=== PATIENT | female | born 1955 | race Caucasian/White ===

== ENCOUNTER 2016-06-05 09:46 | Day surgery (SDC) | payer BC ==
[~2016-06-05 09:46] MED LIST: LACTATED RINGERS 1,000 ML IV SCH
[2016-06-05 10:46] VITALS: TEMP 98
[2016-06-05] MEDS ORDERED: LIDOCAINE 1% 20 ML VIAL (10MG/ML) FOR IV START INTRADERMA ONE (10:55)
[2016-06-05] MEDS ORDERED: LACTATED RINGERS 1,000 ML IV ONE (11:20)
[2016-06-05] MEDS ORDERED: PROPOFOL 10 MG/ML 20 ML VIAL IV ONE (11:21)
[2016-06-05] MEDS ORDERED: LIDOCAINE 1% INJ 10MG/ML (20 ML MDV) ONE (11:21)
--- NOTE | 2016-06-05 11:36 | P.PCN ---
Date of Procedure: 06/05/16 Procedure(s) Performed: BRIEF HISTORY: Patient is a 60-year-old, pleasant, white female, scheduled for an upper endoscopy as a part of evaluation of progressive weight loss of almost 40 pounds in the last 2 years duration associated with epigastric discomfort, early satiety. She underwent emergency ileostomy with small bowel resection while visiting [facility] in February 2016 for acute mesenteric ischemia and since then has been maintained on TPN. In the meantime because of progressively decreased oral intake and early satiety she is scheduled for an upper endoscopy to rule out significant upper GI pathology. PROCEDURE PERFORMED: Esophagogastroduodenoscopy with biopsy. PREOPERATIVE DIAGNOSIS: Epigastric pain, early satiety and progressive weight loss. IV sedation per anesthesia. PROCEDURE: After informed consent was obtained, the patient was brought into the endoscopy unit. IV conscious sedation was administered by Anesthesia under continuous monitoring. Initially the Olympus GIF-140 video endoscope was inserted into the mouth. Esophagus intubated without any difficulty. It was gradually advanced into the stomach and duodenum and carefully examined. The bulb and the second part of the duodenum appeared normal. Biopsies were done from the duodenum to rule out celiac disease. The scope at this time was withdrawn to the stomach, adequately insufflated with air, and upon careful examination, mucosa of the antrum had mild mottling of the mucosa and biopsies were done from this area. The body, cardia and the fundus appeared normal. The scope was then withdrawn into the esophagus. The GE junction was located at 39 cm from the incisors. The esophagus appeared normal. There was once were visualized and the GE junction consistent with LA grade a reflux esophagitis and the patient tolerated the procedure well. IMPRESSION: 1. One superficial erosion at the GE junction consistent with LA grade a reflux esophagitis 2. Mild antral gastritis RECOMMENDATIONS: The findings of this examination were discussed with the patient as well as a family. She was advised to follow with the biopsy results. In the meantime she was advised to try some nutritional supplements and have of course continue with TPN. She is scheduled to see Dr. Gillespie next month for reversal of the ileostomy.
[2016-06-05 11:47] VITALS: RESP 16
[2016-06-05 12:04] VITALS: BP 104/70; PULSE 94
== END 2016-06-05 12:45 | disposition home or self-care (01) ==
LOC: ORWHC2ENDO 09:46
PROVIDERS: ATTEND Internal Medicine Gastroenterology
DX: K21.0 Gastro-esophageal reflux disease with esophagitis (principal); K29.50 Unspecified chronic gastritis without bleeding; Z93.2 Ileostomy status; K55.059 Acute (reversible) ischemia of intestine, part and extent unspecified; F17.200 Nicotine dependence, unspecified, uncomplicated; Z79.82 Long term (current) use of aspirin; Z79.899 Other long term (current) drug therapy
CPT/HCPCS: 88305; 88342; 43239; J2001; J2704

== ENCOUNTER 2016-11-19 09:55 | Inpatient (IN) | payer BC ==
[2016-11-19] MEDS ORDERED: IPRATROPIUM-ALBUTEROL 3 ML NEB INHALATION STA (10:17)
--- NOTE | 2016-11-19 10:23 | ED ---
General Adult HPI - General Chief complaint: Shortness of Breath Stated complaint: SOB, Weakness Time Seen by Provider: 11/19/16 10:05 Source: patient, RN notes reviewed Mode of arrival: ambulatory Limitations: physical limitation - History of Present Illness Initial comments: This a 61-year-old female who presents to the emergency department stating she is a chronic smoker but believe she quit yesterday. Patient states last urination difficulty breathing. Patient states she's also been coughing quite a bit during the day. Patient states she hasn't had much of a productive cough however. Patient denies any fever or chills. Patient denies any breathing treatments at home. Patient denies any chest pain or palpitations. Patient denies any abdominal pain patient denies nausea vomiting diarrhea. Patient denies headache patient denies numbness weakness. Patient states her breathing gets considerably worse with any exertion. Patient states since his had the oxygen on her she does feel better. Patient denies having any oxygen at home. Patient also has a feeding tube secondary to ischemic bowel in the past. - Related Data Home Medications Medication Instructions Recorded Confirmed Apixaban [Eliquis] 5 mg PO DAILY 11/19/16 11/19/16 Budesonide/Formoterol Fumarate 2 puff INHALATION RT-BID 11/19/16 11/19/16 [Symbicort 160-4.5 Mcg Inhaler] Allergies Allergy/AdvReac Type Severity Reaction Status Date / Time No Known Allergies Allergy Verified 11/19/16 10:19 Review of Systems ROS Statement: Those systems with pertinent positive or pertinent negative responses have been documented in the HPI. ROS Other: All systems not noted in ROS Statement are negative. 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 SINCE THEN, MALABSORPTION SYNDROME IS ON TPN WITH PICC LINE. HAD A STROKE POST THIS SURGERY, NO REDISUAL. History of Any Multi-Drug Resistant Organisms: None Reported Past Surgical History: Breast Surgery, Section, Tubal Ligation Additional Past Surgical History / Comment(s): 03/17/16 IN [facility], HAD 16 INCHES OF SMALL BOWEL REMOVED WITH ILEOSTOMY (THERE IS PLAN TO RECONNECT BOWEL, DR. POWELL AT [facility]). BX RIGHT BREAST X 2(NEG). Past Psychological History: No Psychological Hx Reported Smoking Status: Former smoker Past Alcohol Use History: Daily, Heavy Past Drug Use History: None Reported General Exam - General Exam Comments Initial Comments: GENERAL: Patient is well-developed and well-nourished. Patient is nontoxic and well- hydrated and is in mild distress. ENT: Neck is soft and supple. No significant lymphadenopathy is noted. Oropharynx is clear. Moist mucous membranes. Neck has full range of motion without eliciting any pain. EYES: The sclera were anicteric and conjunctiva were pink and moist. Extraocular movements were intact and pupils were equal round and reactive to light. Eyelids were unremarkable. PULMONARY: Diminished breath sounds with some crackles in the right base CARDIOVASCULAR: There is a regular rate and rhythm without any murmurs gallops or rubs. ABDOMEN: Soft and nontender with normal bowel sounds. No palpable organomegaly was noted. There is no palpable pulsatile mass. SKIN: Skin is clear with no lesions or rashes and otherwise unremarkable. NEUROLOGIC: Patient is alert and oriented x3. Cranial nerves II through XII are grossly intact. Motor and sensory are also intact. Normal speech, volume and content. Symmetrical smile. MUSCULOSKELETAL: Normal extremities with adequate strength and full range of motion. No lower extremity swelling or edema. No calf tenderness. LYMPHATICS: No significant lymphadenopathy is noted PSYCHIATRIC: Normal psychiatric evaluation. Normal interpersonal interactions appears functionally intact in deals appropriately with others. No signs of depression. No signs of anxiety. Limitations: physical limitation Course Vital Signs 11/19/16 11/19/16 11/19/16 10:06 10:35 10:44 Temperature 97.0 F L Pulse Rate 111 H 110 H 110 H Respiratory 22 Rate Blood Pressure 124/71 O2 Sat by Pulse 88 L Oximetry 11/19/16 11/19/16 11:23 12:18 Temperature 97.1 F L Pulse Rate 112 H 110 H Respiratory 18 Rate Blood Pressure 109/71 111/77 O2 Sat by Pulse 95 100 Oximetry Medical Decision Making - Medical Decision Making EKG shows a sinus tachycardia at 112 bpm IL interval is 126 QRS is 70 QT interval 344 QTC is 469. Patient's EKG shows no ST segment elevation or depression. Chest the chest shows a right lower lobe pneumonia. CT of the chest showed no obvious pulmonary embolus. Because of the patient's pneumonia high lactate patient got over 30 mL of fluid per KG. Patient also got antibiotics broad- spectrum Levaquin. I admitted the patient to Dr. Naila Yoo agreed to admit the patient I wrote admitting orders. - Lab Data Result diagrams: 11/19/16 09:55 11/19/16 09:55 Lab Results 11/19/16 11/19/16 11/19/16 Range/Units 09:55 09:55 09:55 WBC 10.5 (3.8-10.6) k/uL RBC 3.73 L (3.80-5.40) m/uL Hgb 12.2 (11.4-16.0) gm/dL Hct 36.7 (34.0-46.0) % MCV 98.5 (80.0-100.0) fL MCH 32.6 (25.0-35.0) pg MCHC 33.1 (31.0-37.0) g/dL RDW 15.3 (11.5-15.5) % Plt Count 248 (150-450) k/uL Neutrophils % 77 % Lymphocytes % 15 % Monocytes % 6 % Eosinophils % 0 % Basophils % 0 % Neutrophils # 8.1 H (1.3-7.7) k/uL Lymphocytes # 1.5 (1.0-4.8) k/uL Monocytes # 0.7 (0-1.0) k/uL Eosinophils # 0.0 (0-0.7) k/uL Basophils # 0.0 (0-0.2) k/uL Hypochromasia Slight Macrocytosis Slight PT (9.0-12.0) sec INR (<1.1) APTT (22.0-30.0) sec D-Dimer (<0.60) mg/L FEU Sodium 146 H (137-145) mmol/L Potassium 4.9 (3.5-5.1) mmol/L Chloride 112 H (98-107) mmol/L Carbon Dioxide 18 L (22-30) mmol/L Anion Gap 16 mmol/L BUN 39 H (7-17) mg/dL Creatinine 0.96 (0.52-1.04) mg/dL Est GFR (MDRD) Af Amer >60 (>60 ml/min/1.73 sqM) Est GFR (MDRD) Non-Af 59 (>60 ml/min/1.73 sqM) Glucose 123 H (74-99) mg/dL Plasma Lactic Acid Gallito (0.7-2.0) mmol/L Calcium 8.2 L (8.4-10.2) mg/dL Magnesium 2.2 (1.6-2.3) mg/dL Total Bilirubin 0.9 (0.2-1.3) mg/dL AST 846 H (14-36) U/L ALT 1076 H (9-52) U/L Alkaline Phosphatase 108 (38-126) U/L Total Creatine Kinase 78 (30-135) U/L CK-MB (CK-2) 1.3 (0.0-2.4) ng/mL CK-MB (CK-2) Rel Index 1.7 Troponin I 0.045 H* (0.000-0.034) ng/mL NT-Pro-B Natriuret Pep pg/mL Total Protein 6.2 L (6.3-8.2) g/dL Albumin 3.3 L (3.5-5.0) g/dL 11/19/16 11/19/16 11/19/16 Range/Units 09:55 09:55 09:55 WBC (3.8-10.6) k/uL RBC (3.80-5.40) m/uL Hgb (11.4-16.0) gm/dL Hct (34.0-46.0) % MCV (80.0-100.0) fL MCH (25.0-35.0) pg MCHC (31.0-37.0) g/dL RDW (11.5-15.5) % Plt Count (150-450) k/uL Neutrophils % % Lymphocytes % % Monocytes % % Eosinophils % % Basophils % % Neutrophils # (1.3-7.7) k/uL Lymphocytes # (1.0-4.8) k/uL Monocytes # (0-1.0) k/uL Eosinophils # (0-0.7) k/uL Basophils # (0-0.2) k/uL Hypochromasia Macrocytosis PT 17.3 H (9.0-12.0) sec INR 1.8 (<1.1) APTT 22.5 (22.0-30.0) sec D-Dimer 12.20 H (<0.60) mg/L FEU Sodium (137-145) mmol/L Potassium (3.5-5.1) mmol/L Chloride (98-107) mmol/L Carbon Dioxide (22-30) mmol/L Anion Gap mmol/L BUN (7-17) mg/dL Creatinine (0.52-1.04) mg/dL Est GFR (MDRD) Af Amer (>60 ml/min/1.73 sqM) Est GFR (MDRD) Non-Af (>60 ml/min/1.73 sqM) Glucose (74-99) mg/dL Plasma Lactic Acid Gallito 4.8 H* (0.7-2.0) mmol/L Calcium (8.4-10.2) mg/dL Magnesium (1.6-2.3) mg/dL Total Bilirubin (0.2-1.3) mg/dL AST (14-36) U/L ALT (9-52) U/L Alkaline Phosphatase (38-126) U/L Total Creatine Kinase (30-135) U/L CK-MB (CK-2) (0.0-2.4) ng/mL CK-MB (CK-2) Rel Index Troponin I (0.000-0.034) ng/mL NT-Pro-B Natriuret Pep 57234 pg/mL Total Protein (6.3-8.2) g/dL Albumin (3.5-5.0) g/dL Critical Care Time Critical Care Time: Yes Total Critical Care Time: 35 Disposition Clinical Impression: Right lower lobe pneumonia, Sepsis Disposition[facility] Referrals: Nonstaff,Physician [Primary Care Provider] - 1-2 days Time of Disposition: 13:16
[2016-11-19 10:53] LABS: Alkaline Phosphatase 108 U/L (38-126); Anion Gap 16 mmol/L; Blood Urea Nitrogen 39 mg/dL (7-17); Calcium 8.2 mg/dL (8.4-10.2); Carbon Dioxide 18 mmol/L (22-30); Chloride 112 mmol/L (98-107); Glucose 123 mg/dL (74-99); Magnesium 2.2 mg/dL (1.6-2.3); Non-African American GFR(MDRD) 59 (>60 ml/min/1.73 sqM); Potassium 4.9 mmol/L (3.5-5.1); Sodium 146 mmol/L (137-145); Total Bilirubin 0.9 mg/dL (0.2-1.3); Total Protein 6.2 g/dL (6.3-8.2)
[2016-11-19 11:02] LABS: ALT 1076 U/L (9-52); AST 846 U/L (14-36)
[2016-11-19 11:06] LABS: Basophils % (A) 0 %; CH 30.9; CHCM 31.4; Eosinophils % (A) 0 %; HCT 36.7 % (34.0-46.0); HDW 2.47; HGB 12.2 gm/dL (11.4-16.0); Hypochromasia Slight; Luc # (Auto) 0.18; Luc % (Auto) 2; Lymphocytes # (A) 1.5 k/uL (1.0-4.8); Lymphocytes % (A) 15 %; MCH 32.6 pg (25.0-35.0); MCHC 33.1 g/dL (31.0-37.0); MCV 98.5 fL (80.0-100.0); Macrocytosis Slight; Monocytes # (A) 0.7 k/uL (0-1.0); Monocytes % (A) 6 %; Neutrophils # (A) 8.1 k/uL (1.3-7.7); Neutrophils % (A) 77 %; RBC 3.73 m/uL (3.80-5.40); RDW 15.3 % (11.5-15.5); WBC 10.5 k/uL (3.8-10.6); WBC (Perox) 10.76
[2016-11-19 11:14] LABS: INR 1.8 (<1.1); Partial Thromboplastin Time 22.5 sec (22.0-30.0); Prothrombin Time 17.3 sec (9.0-12.0)
[2016-11-19 11:18] LABS: Creatine Kinase MB 1.3 ng/mL (0.0-2.4)
[2016-11-19 11:21] LABS: Troponin I 0.045 ng/mL (0.000-0.034)
--- NOTE | 2016-11-19 11:51 | XR ---
EXAMINATION TYPE: XR chest 2V DATE OF EXAM: 11/19/2016 COMPARISON: NONE INDICATION: Difficulty breathing TECHNIQUE: Frontal and lateral views of the chest are obtained. FINDINGS: The heart size is normal. The pulmonary vasculature is normal. Mild infiltrates in the right lower lobe are visualized on lateral view correlate for pneumonia. Rig ht-sided catheter is present with tip in superior vena cava region. IMPRESSION: 1. Right lower lobe infiltrate. Correlate for pneumonia. Follow-up to clearing is recommended.
[2016-11-19] MEDS ORDERED: LEVOFLOXACIN 750MG-D5W PMX 750 MG in DEXTROSE/WATER 1 150ML.BAG IVPB STA (12:04)
[2016-11-19] MEDS ORDERED: RX INFO: IV CONTRAST WAS GIVEN 1 EACH MISC MISCELLANE PRN (12:04)
[2016-11-19] MEDS ORDERED: SODIUM CHLORIDE 0.9% 500 ML IV ONE (12:09)
[2016-11-19] MEDS ORDERED: SODIUM CHLORIDE 0.9% 1,000 ML IV ONE (12:09)
--- NOTE | 2016-11-19 13:04 | CT ---
EXAMINATION TYPE: CT chest angio for PE DATE OF EXAM: 11/19/2016 COMPARISON: Chest x-ray same date HISTORY: SOB, elevated d dimer CT DLP: 361 mGycm Automated exposure control for dose reduction was used. CONTRAST: CT Chest for pulmonary embolism performed with with IV Contrast, patient injected with 60 mL of Visip aque 320. FINDINGS: LUNGS: Right greater than left pleural effusions. In the right lower lobe several segmental pulmonary arteries do not fill with contrast. No filling defect is identified however. Reflux of contrast pres ent into the inferior vena cava and hepatic veins may be due to heart failure. There is associated ba silar atelectasis bilaterally. Emphysematous changes are present especially at the lung apices. Inter stitial changes are present, there is a thickened interlobular septal pleural lines. Motion is also p resent. Right-sided PICC line is in place. MEDIASTINUM: Air seen in the superior mediastinum, right clavicular location may be venous. No eviden t adenopathy. The heart is enlarged. AORTA: No additional significant abnormality is seen. OTHER: Right atrial enlargement suspected. IMPRESSION: Pulmonary embolism is not excluded, there is lack of filling of segmental arteries to the right lower lobe. Right greater than left pleural effusion. Correlate for heart failure, there is cardiac enlarg ement.
[2016-11-19] MEDS ORDERED: PNEUMONIA PROTOCOL UTILIZED 1 EACH MISC PO PRN (13:17)
[2016-11-19] MEDS ORDERED: THIAMINE 100 MG TAB PO SCH (17:00)
[2016-11-19] MEDS ORDERED: FUROSEMIDE 10 MG/ML 2 ML VIAL IV ONE (18:54)
[2016-11-19] MEDS ORDERED: LORazepam 2 MG/ML SYRINGE IV PRN ×3 (18:55)
[2016-11-19] MEDS ORDERED: THIAMINE 100 MG/ML 2 ML VIAL IM STA (18:55)
[2016-11-19] MEDS ORDERED: NICOTINE 21MG/24HR PATCH TRANSDERM STA (18:56)
[2016-11-19] MEDS ORDERED: TEMAZEPAM 15 MG CAP PO PRN (19:45)
[2016-11-19] MEDS: SYMBICORT 160-4.5 MCG INHALER INHALATION SCH (21:00)
[2016-11-19] MEDS: FUROSEMIDE 10 MG/ML 4 ML VIAL IV SCH ×2 (21:30→23:26)
[2016-11-19] MEDS: PANTOPRAZOLE 40 MG/10 ML VIAL IVP SCH (21:30)
[2016-11-19] MEDS: APIXABAN 5 MG TAB PO SCH (21:30)
[2016-11-19 22:04] LABS: Creatine Kinase MB 1.5 ng/mL (0.0-2.4)
[2016-11-19 22:05] LABS: Troponin I 0.048 ng/mL (0.000-0.034)
[2016-11-19 22:17] LABS: Hepatitis B Surface Ag Index 0.05
[2016-11-19 22:23] LABS: Hepatitis B Core IgM Index 0.02
[2016-11-19 22:35] LABS: Hepatitis C Virus IgG Ab Negative (Negative); Hepatitis C Virus IgG Index 0.03
[2016-11-20 03:39] LABS: Alkaline Phosphatase 103 U/L (38-126); Anion Gap 12 mmol/L; Blood Urea Nitrogen 45 mg/dL (7-17); Calcium 8.3 mg/dL (8.4-10.2); Carbon Dioxide 17 mmol/L (22-30); Chloride 113 mmol/L (98-107); Glucose 94 mg/dL (74-99); Non-African American GFR(MDRD) 53 (>60 ml/min/1.73 sqM); Potassium 4.7 mmol/L (3.5-5.1); Sodium 142 mmol/L (137-145); Total Protein 5.8 g/dL (6.3-8.2)
[2016-11-20 03:47] LABS: ALT 1499 U/L (9-52); AST 1399 U/L (14-36)
[2016-11-20 03:49] LABS: Basophils % (A) 0 %; CH 31.2; CHCM 31.4; Eosinophils % (A) 0 %; HCT 33.6 % (34.0-46.0); HDW 2.55; HGB 10.8 gm/dL (11.4-16.0); Hypochromasia Slight; Luc # (Auto) 0.17; Luc % (Auto) 2; Lymphocytes # (A) 1.5 k/uL (1.0-4.8); Lymphocytes % (A) 15 %; MCH 32.2 pg (25.0-35.0); MCHC 32.2 g/dL (31.0-37.0); Macrocytosis Slight; Mean Platelet Volume 8.8; Monocytes # (A) 0.7 k/uL (0-1.0); Monocytes % (A) 7 %; Neutrophils # (A) 7.7 k/uL (1.3-7.7); Neutrophils % (A) 77 %; RBC 3.36 m/uL (3.80-5.40); RDW 15.9 % (11.5-15.5); WBC (Perox) 10.32
[2016-11-20 03:59] LABS: Creatine Kinase MB 1.9 ng/mL (0.0-2.4)
[2016-11-20 04:04] LABS: Troponin I 0.054 ng/mL (0.000-0.034)
[2016-11-20] MEDS: SYMBICORT 160-4.5 MCG INHALER INHALATION SCH ×3 (08:46→19:38)
[2016-11-20] MEDS ORDERED: APIXABAN 5 MG TAB PO SCH (09:00)
[2016-11-20] MEDS: FUROSEMIDE 10 MG/ML 4 ML VIAL IV SCH ×3 (09:52→23:52)
[2016-11-20] MEDS: PANTOPRAZOLE 40 MG/10 ML VIAL IVP SCH (09:52)
[2016-11-20] MEDS: NICOTINE 21MG/24HR PATCH TRANSDERM SCH (09:52)
[2016-11-20] MEDS: APIXABAN 5 MG TAB PO SCH ×2 (09:52→20:59)
--- NOTE | 2016-11-20 10:21 | P.CRDCN ---
History of Present Illness Consult date: 11/20/16 Reason for Consult (text): elevated BNP and troponin Chief complaint: shortness of breath and cough History of present illness: This is a 61-year-old female patient who presented to the emergency department with complaints of shortness of breath and cough. Patient has a history of clots in her mesenteric artery leading to necrosis of small bowel with subsequent small bowel resection, malabsorption syndrome, smoker, heavy drinker daily, CVA following her surgery in February while she was in [place]. She does follow with a supervisor photocomposition out of [place] and underwent recent chemical stress test and echocardiogram. She was scheduled to see her supervisor photocomposition in follow-up at the end of November for was called to make an earlier appointment. She has been on Eliquis 5 mg daily at home. EKG and admission showed sinus rhythm with poor R-wave progression and nonspecific ST-T wave abnormalities. Chest x-ray showed right lower lobe infiltrate. CTA of the chest not exclude a pulmonary embolism and showed lack of filling of sudden mental arteries to the right lower lobe. Right greater than left pleural effusion, correlate for heart failure. Lab evaluation showed a d-dimer of 12.2 , INR 1.8, lactic acid 4.8, elevated AST and ALTs, proBNP 27,100 and troponin levels of 0.045, 0.048 and 0.054. She has been initiated on Lasix 40 mg IV push every 8 hours and Eliquis 5mg BID. Admission this morning, patient is resting comfortably in bed. Does not feel much improvement in her shortness of breath. 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 SINCE THEN HAD MALABSORPTION SYNDROME HAD TPN VIA RT ARM PICC LINE. ( HAD A STROKE POST THIS SURGERY, ON DOMINAT LT SIDE-ONLY RESIDUAL -HER WRITING IS DIFFICULT TO READ). ON 10-07-16 HAD THE REVESRAL SX DONE. History of Any Multi-Drug Resistant Organisms: None Reported Past Surgical History: Breast Surgery, Section, Tubal Ligation Additional Past Surgical History / Comment(s): 03/17/16 IN [facility], HAD 16 INCHES OF SMALL BOWEL REMOVED WITH ILEOSTOMY - ON OCTOBER 07 HAD REVESAL SX DONE RT ARM PICC LINE,. BX RIGHT BREAST X 2(NEG). EGD. "SX TO REMOVED BLOOD CLOT FROM ARTERY RT SIDE OF BRAIN" Additional Past Anesthesia/Blood Transfusion Reaction / Comment(s): CLAUSTERPHOBIA Smoking Status: Current every day smoker - Past Family History Mother Family Medical History: Cancer Father Additional Family Medical History / Comment(s): ENCEPHALITIS Medications and Allergies Home Medications Medication Instructions Recorded Confirmed Type Apixaban [Eliquis] 5 mg PO DAILY 11/19/16 11/19/16 History Budesonide/Formoterol Fumarate 2 puff INHALATION RT-BID 11/19/16 11/19/16 History [Symbicort 160-4.5 Mcg Inhaler] Allergies Allergy/AdvReac Type Severity Reaction Status Date / Time No Known Allergies Allergy Verified 11/19/16 10:19 Physical Exam Vitals: Vital Signs Temp Pulse Pulse Resp BP BP Pulse Ox 11/20/16 09:03 97.1 F L 96 20 139/83 95 11/20/16 04:00 97.6 F 99 18 114/83 98 11/20/16 00:00 96.9 F L 111 H 18 118/62 97 11/19/16 20:00 96.1 F L 106 H 18 115/81 100 11/19/16 18:05 96.3 F L 112 H 18 110/70 92 L 11/19/16 17:11 96.8 F L 106 H 18 130/59 100 11/19/16 15:30 97.0 F L 111 H 20 137/90 11/19/16 14:33 97.0 F L 110 H 18 128/77 98 11/19/16 12:18 97.1 F L 110 H 18 111/77 100 11/19/16 11:23 112 H 109/71 95 11/19/16 10:44 110 H 11/19/16 10:35 110 H 11/19/16 10:06 97.0 F L 111 H 22 124/71 88 L Intake and Output 11/19/16 11/20/16 11/20/16 22:59 06:59 14:59 Intake Total 240 Output Total 450 350 Balance -450 -350 240 Intake: Oral 240 Output: Urine 450 350 Other: # Voids 1 1 # Bowel Movements 1 Weight 43.6 kg PHYSICAL EXAMINATION: HEENT: Head is atraumatic, normocephalic. Pupils equal, round. Neck is supple. There is no elevated jugular venous pressure. HEART EXAMINATION: Heart sounds regular, S1 and S2 normal. No murmur or gallop heard. CHEST EXAMINATION: Lungs reveal crackles to right lower lobe as well as scattered rhonchi. No chest wall tenderness is noted on palpation or with deep breathing. ABDOMEN: Soft, nontender. Bowel sounds are heard. No organomegaly noted. EXTREMITIES: 1+ peripheral pulses with no evidence of peripheral edema and no calf tenderness noted. NEUROLOGIC patient is awake, alert and oriented x3. . Results 11/20/16 02:56 11/20/16 02:56 Cardiac Enzymes 11/19/16 11/19/16 11/19/16 Range/Units 09:55 09:55 21:24 AST 846 H (14-36) U/L CK-MB (CK-2) 1.3 1.5 (0.0-2.4) ng/mL Troponin I 0.045 H* 0.048 H* (0.000-0.034) ng/mL 11/20/16 11/20/16 Range/Units 02:56 02:56 AST 1399 H (14-36) U/L CK-MB (CK-2) 1.9 (0.0-2.4) ng/mL Troponin I 0.054 H* (0.000-0.034) ng/mL Coagulation 11/19/16 Range/Units 09:55 PT 17.3 H (9.0-12.0) sec APTT 22.5 (22.0-30.0) sec CBC 11/19/16 11/20/16 Range/Units 09:55 02:56 WBC 10.5 10.0 (3.8-10.6) k/uL RBC 3.73 L 3.36 L (3.80-5.40) m/uL Hgb 12.2 10.8 L (11.4-16.0) gm/dL Hct 36.7 33.6 L (34.0-46.0) % Plt Count 248 201 (150-450) k/uL Comprehensive Metabolic Panel 11/19/16 11/20/16 Range/Units 09:55 02:56 Sodium 146 H 142 (137-145) mmol/L Potassium 4.9 4.7 (3.5-5.1) mmol/L Chloride 112 H 113 H (98-107) mmol/L Carbon Dioxide 18 L 17 L (22-30) mmol/L BUN 39 H 45 H (7-17) mg/dL Creatinine 0.96 1.05 H (0.52-1.04) mg/dL Glucose 123 H 94 (74-99) mg/dL Calcium 8.2 L 8.3 L (8.4-10.2) mg/dL AST 846 H 1399 H (14-36) U/L ALT 1076 H 1499 H (9-52) U/L Alkaline Phosphatase 108 103 (38-126) U/L Total Protein 6.2 L 5.8 L (6.3-8.2) g/dL Albumin 3.3 L 3.0 L (3.5-5.0) g/dL Current Medications Generic Name Dose Route Start Last Admin Trade Name Freq PRN Reason Stop Dose Admin Apixaban 5 mg 11/19/16 21:00 11/20/16 09:52 Eliquis PO 5 mg BID DAVID Administration Budesonide/Formoterol Fumarate 2 puff 11/19/16 20:00 11/20/16 08:57 Symbicort 160-4.5 Mcg Inhaler INHALATION 2 puff RT-BID DAVID Administration Furosemide 40 mg 11/19/16 19:30 11/20/16 09:52 Lasix IV 40 mg Q8HR DAVID Administration Hydromorphone HCl 0.25 mg 11/19/16 19:45 Dilaudid IVP Q6HR PRN Severe Pain Levofloxacin 750 mg/ IV 150 mls @ 100 mls/hr 11/20/16 12:00 Solution IVPB 12/02/16 12:01 Q24H DAVID Lorazepam 1 mg 11/19/16 18:55 Ativan IV Q2HR PRN CIWA 8 or 9 Lorazepam 1 mg 11/19/16 18:55 Ativan IV Q1HR PRN CIWA 10 to 15 Lorazepam 2 mg 11/19/16 18:55 Ativan IV Q1HR PRN CIWA 16 or higher Miscellaneous Information 1 each 11/19/16 12:04 Rx Info: Iv Contrast Was Given MISCELLANE 11/21/16 12:04 DAILY PRN Per Protocol Miscellaneous Information 1 each 11/19/16 13:17 Pneumonia Protocol Utilized PO ONCE PRN Per Protocol Nicotine 1 patch 11/20/16 09:00 11/20/16 09:52 Habitrol 21mg/24hr Patch TRANSDERM 1 patch DAILY DAVID Administration Pantoprazole Sodium 40 mg 11/19/16 20:00 11/20/16 09:52 Protonix IVP 40 mg DAILY DAVID Administration Temazepam 15 mg 11/19/16 19:45 Restoril PO HS PRN Insomnia Thiamine HCl 100 mg 11/20/16 12:00 Vitamin B-1 PO BID@1200,1700 DAVID Intake and Output 11/19/16 11/20/16 11/20/16 22:59 06:59 14:59 Intake Total 240 Output Total 450 350 Balance -450 -350 240 Intake: Oral 240 Output: Urine 450 350 Other: # Voids 1 1 # Bowel Movements 1 Weight 43.6 kg 11/20/16 02:56 11/20/16 02:56 Assessment and Plan Plan: Assessment and plan #1 acute congestive heart failure, systolic #2 prior history of emboli, on subtherapeutic dose of Eliquis at home #3 alcohol abuse #4 pneumonia, right lower lobe #5 nicotine dependence #6 elevated AST and ALT #7 history of CVA From cardiac standpoint, we'll obtain records from Dr. Kern in [place]. Continue current dose of IV Lasix. Echocardiogram was reviewed, showed an ejection fraction less than 20%. Elevated liver enzymes likely related to underlying liver disorder, will obtain ultrasound of the liver. Patient's symptoms likely related to congestive heart failure. We will start the patient on a small dose of an SHELDON inhibitor as well as Aldactone 25 mg by mouth daily. Will add beta ramez after diuresing the patient. Patient likely does not have significant PE. Further recommendations to follow. VETERINARY ATTENDANT note has been reviewed, I agree with a documented findings and plan of care. Patient was seen and examined.
--- NOTE | 2016-11-20 11:39 | XR ---
EXAMINATION TYPE: XR chest 2V DATE OF EXAM: 11/20/2016 COMPARISON: 11/19/2016 HISTORY: Shortness of breath TECHNIQUE: Frontal and lateral views of the chest are obtained. FINDINGS: Scattered senescent parenchymal changes noted. Hyperinflation compatible with COPD. Patchy right lower lobe infiltrate is unchanged. Small bilateral pleural effusions. PICC line is unch anged as well. Heart size is stable. Mediastinal structures are stable and grossly unremarkable. No evidence for hilar prominence. Degenerative changes dorsal spine. IMPRESSION: 1. Right lower lobe pneumonia.
[2016-11-20] MEDS ORDERED: LEVOFLOXACIN 750MG-D5W PMX 750 MG in DEXTROSE/WATER 1 150ML.BAG IVPB SCH (12:00)
[2016-11-20 12:32] LABS: Appearance,Urine Clear (Clear); Bilirubin,Urine Negative (Negative); Glucose,Urine (UA) Negative (Negative); Ketones,Urine Negative (Negative); Leukocyte Esterase,Urine Negative (Negative); Nitrite,Urine Negative (Negative); Protein,Urine Negative (Negative); Specific Gravity,Urine 1.006 (1.001-1.035); UA Billing (MACRO vs. MICRO) CHEM; Urobilinogen,Urine <2.0 mg/dL (<2.0)
--- NOTE | 2016-11-20 12:38 | ECHOF ---
Referral Reason:Elevated trops MEASUREMENTS -------- HEIGHT: 165.1 cm WEIGHT: 43.5 kg BP: 114/83 RVIDd: 3.0 cm (< 3.3) IVSd: 0.9 cm (0.6 - 1.1) LVIDd: 4.7 cm (3.9 - 5.3) LVPWd: 1.4 cm (0.6 - 1.1) IVSs: 1.0 cm LVIDs: 4.7 cm LVPWs: 1.4 cm LA Diam: 3.6 cm (2.7 - 3.8) LAESV Index (A-L): 38.71 ml/m Ao Diam: 3.6 cm (2.0 - 3.7) AV Cusp: 1.9 cm (1.5 - 2.6) LA Diam: 4.2 cm (2.7 - 3.8) MV EXCURSION: 18.742 mm (> 18.000) MV EF SLOPE: 101 mm/s (70 - 150) EPSS: 1.6 cm MV E Paulie: 0.50 m/s MV DecT: 82 ms MV A Paulie: 0.38 m/s MV E/A Ratio: 1.31 RAP: 5.00 mmHg RVSP: 31.56 mmHg FINDINGS -------- Sinus rhythm. This was a technically good study. There is severe global hypokinesis of LV . Overall left ventricular systolic function is severely impaired with, an EF < 20%. The right ventricle is normal in size. LA is moderately dilated 34-39 ml/m2 The right atrial size is normal. There is mild aortic valve sclerosis. There is no evidence of aortic regurgitation. Mild mitral annular calcification present. Mild mitral regurgitation is present. Moderate tricuspid regurgitation present. There is no evidence of pulmonary hypertension. The right ventricular systolic pressure, as measured by Doppler, is 31.56mmHg. Trace/mild (physiologic) pulmonic regurgitation. The aortic root size is normal. There is a small, generalized pericardial effusion present. CONCLUSIONS -------- 1. There is severe global hypokinesis of LV . 2. Trace/mild (physiologic) pulmonic regurgitation. 3. The aortic root size is normal. 4. There is a small, generalized pericardial effusion present. 5. Overall left ventricular systolic function is severely impaired with, an EF < 20%. 6. LA is moderately dilated 34-39 ml/m2 7. There is mild aortic valve sclerosis. 8. Mild mitral annular calcification present. 9. Mild mitral regurgitation is present. 10. Moderate tricuspid regurgitation present. 11. There is no evidence of pulmonary hypertension. 12. The right ventricular systolic pressure, as measured by Doppler, is 31.56mmHg. STRATEGIC CONSULTANT: Vane Chappell RDCS
--- NOTE | 2016-11-20 13:36 | US ---
EXAMINATION TYPE: US liver DATE OF EXAM: 11/20/2016 COMPARISON: NONE CLINICAL HISTORY: Elevated AST/ALT. In hospital for [facility]RYN; post ileostomy reversal September 2016 from ischem ic bowel; PEG tube; PICC line EXAM MEASUREMENTS: Liver Length: 14.7 cm Gallbladder Wall: 0.6 cm CBD: 0.4 cm Right Kidney: 9.4 x 5.2 x 4.7 cm Pancreas: heterogeneous appearance Liver: wnl Gallbladder: abnormally thickened wall; pericholecystic fluid Evidence for sonographic Menon's sign: No CBD: wnl Right Kidney: No hydronephrosis or masses seen Bilateral pleural effusion is noted. Small amount of ascites is also noted in RUQ, LUQ, LLQ. IMPRESSION: 1. Gallbladder wall thickening with pericholecystic fluid. No definite cholelithiasis at this time. S mall amount of ascites.
[2016-11-20] MEDS: LISINOPRIL 2.5 MG TAB PO SCH (13:59)
[2016-11-20] MEDS: SPIRONOLACTONE 25 MG TAB PO SCH (13:59)
[2016-11-20] MEDS: THIAMINE 100 MG TAB PO SCH ×2 (14:00→17:05)
--- NOTE | 2016-11-20 15:19 | P.CNPUL ---
History of Present Illness Consult date: 11/20/16 Reason for consult: pneumonia History of present illness: This is a very pleasant 61-year-old female patient was admitted for increased shortness of breath. The patient has an extensive medical history and her health has been gradually declining over the past 6-8 months. She was involved in a stroke during her visits visit to [facility]. 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 At that point, the patient had surgical resection of the small bowel and she was left with a short.resulting into some degree of malabsorption. The patient was given a PICC line through which she was receiving TPN for nutritional support. At the later stage the PICC line got infected and the patient is currently being supplemented with a PEG tube feeding for nutritional support. As for the CVA, the patient had a vascular intervention, probably a neurovascular intervention where the clot was busted or removed and she has minimal residual deficits and weakness of the right upper extremity. She was placed on anticoagulation and currently she is being followed up by a colorectal surgeon through in [place], [place].. She has been taking Eliquis 5 mg a daily basis as a long-term anticoagulants. She came into the hospital because of increased cough and chest congestion and worsening shortness of breath with his own on for the past 3 weeks. She had a CAT scan of the chest that showed a moderate-sized right- sided pleural effusion along with some right basilar infiltration. The CTA did not rule in or out the possibility of pulmonary embolism although based on my review it's less likely knowing that I do not see any significant filling defects. The patient had an echocardiogram that showed an ejection fraction of less than 20%. The BNP level was 27,001 100. There was a mild troponin leak with troponin levels being 0.045, 0.048 and 0.054 respectively. Based on all this, she started on antibiotics. She was started on diuretics. The pulmonary and a cardiology consultation was also requested. She denies having any chest pain. No fever or chills. No aspiration. Review of Systems A 12 point review of system was done and the positive findings are all mentioned above in history of present illness. The patient has been unfortunately losing weight due to her bowel resection. She is also recovering from his CVA. Her dominant side is on the left and she has some minimal residual deficits. No difficulties with speech. He is a bit weak. She is short of breath. All systems: negative Constitutional: Denies chills, Denies fever Eyes: denies blurred vision, denies pain Ears, nose, mouth and throat: Denies headache, Denies sore throat Cardiovascular: Denies chest pain, Denies shortness of breath Respiratory: Denies cough Gastrointestinal: Denies abdominal pain, Denies diarrhea, Denies nausea, Denies vomiting Genitourinary: Denies dysuria, Denies hematuria Musculoskeletal: Denies myalgias Integumentary: Denies pruritus, Denies rash Neurological: Denies numbness, Denies weakness Psychiatric: Denies anxiety, Denies depression Endocrine: Denies fatigue, Denies weight change Past Medical History Past Medical History: CVA/TIA Additional Past Medical History / Comment(s): CVA involving the dominant left side with some residual deficits with writing and reading., 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 History of Any Multi-Drug Resistant Organisms: None Reported Past Surgical History: Breast Surgery, Section, Tubal Ligation Additional Past Surgical History / Comment(s): 03/17/16 IN [facility], HAD 16 INCHES OF SMALL BOWEL REMOVED WITH ILEOSTOMY - ON OCTOBER 07- HAD REVESAL SX DONE RT ARM PICC LINE,. BX RIGHT BREAST X 2(NEG). EGD. "SX TO REMOVED BLOOD CLOT FROM ARTERY RT SIDE OF BRAIN" Additional Past Anesthesia/Blood Transfusion Reaction / Comment(s): CLAUSTERPHOBIA Smoking Status: Current every day smoker - Past Family History Mother Family Medical History: Cancer Father Additional Family Medical History / Comment(s): ENCEPHALITIS Medications and Allergies Home Medications Medication Instructions Recorded Confirmed Type Apixaban [Eliquis] 5 mg PO DAILY 11/19/16 11/19/16 History Budesonide/Formoterol Fumarate 2 puff INHALATION RT-BID 11/19/16 11/19/16 History [Symbicort 160-4.5 Mcg Inhaler] Allergies Allergy/AdvReac Type Severity Reaction Status Date / Time No Known Allergies Allergy Verified 11/19/16 10:19 Physical Exam Vitals: Vital Signs Temp Pulse Pulse Resp BP BP Pulse Ox 11/20/16 09:03 97.1 F L 96 20 139/83 95 11/20/16 04:00 97.6 F 99 18 114/83 98 11/20/16 00:00 96.9 F L 111 H 18 118/62 97 11/19/16 20:00 96.1 F L 106 H 18 115/81 100 11/19/16 18:05 96.3 F L 112 H 18 110/70 92 L 11/19/16 17:11 96.8 F L 106 H 18 130/59 100 11/19/16 15:30 97.0 F L 111 H 20 137/90 Intake and Output 11/20/16 11/20/16 11/20/16 06:59 14:59 22:59 Intake Total 240 Output Total 350 Balance -350 240 Intake: Oral 240 Output: Urine 350 Other: # Voids 1 Weight 43.6 kg 43.6 kg Patient Weight 11/21/16 06:59 Weight 43.6 kg Thin and frail and malnourished. Not in acute distress.Head exam was generally normal. There was no scleral icterus or corneal arcus. Mucous membranes were moist.Neck was supple and without jugular venous distension, thyromegaly, or carotid bruits. Carotids were easily palpable bilaterally. There was no adenopathy. Lung sounds are diminished bilaterally. The patient is scattered rhonchi. Scattered expiratory wheezes. Breath sounds are diminished in the right lung base along with some dullness to percussion. Heart sounds are positive for an S3 gallop. No cervical murmurs appreciated. Positive S1-S2. Abdomen is soft and scars of previous surgery over the anterior abdominal wall is seen. PEG tube is clean and intact.Examination of the extremities revealed easily palpable radial, femoral and pedal pulses. There was no cyanosis, clubbing or edema. Results - Laboratory Findings CBC and BMP: 11/20/16 02:56 11/20/16 02:56 PT/INR, D-dimer PT 17.3 sec (9.0-12.0) H 11/19/16 09:55 INR 1.8 (<1.1) 11/19/16 09:55 D-Dimer 12.20 mg/L FEU (<0.60) H 11/19/16 09:55 Abnormal lab findings: Abnormal Labs 11/19/16 11/19/16 11/19/16 09:55 09:55 09:55 RBC 3.73 L Hgb Hct RDW Neutrophils # 8.1 H PT D-Dimer Sodium 146 H Chloride 112 H Carbon Dioxide 18 L BUN 39 H Creatinine Glucose 123 H Plasma Lactic Acid Gallito Calcium 8.2 L AST 846 H ALT 1076 H Troponin I 0.045 H* Total Protein 6.2 L Albumin 3.3 L 11/19/16 11/19/16 11/19/16 09:55 09:55 13:45 RBC Hgb Hct RDW Neutrophils # PT 17.3 H D-Dimer 12.20 H Sodium Chloride Carbon Dioxide BUN Creatinine Glucose Plasma Lactic Acid Gallito 4.8 H* 3.6 H* Calcium AST ALT Troponin I Total Protein Albumin 11/19/16 11/20/16 11/20/16 21:24 02:56 02:56 RBC 3.36 L Hgb 10.8 L Hct 33.6 L RDW 15.9 H Neutrophils # PT D-Dimer Sodium Chloride Carbon Dioxide BUN Creatinine Glucose Plasma Lactic Acid Gallito Calcium AST ALT Troponin I 0.048 H* 0.054 H* Total Protein Albumin 11/20/16 02:56 RBC Hgb Hct RDW Neutrophils # PT D-Dimer Sodium Chloride 113 H Carbon Dioxide 17 L BUN 45 H Creatinine 1.05 H Glucose Plasma Lactic Acid Gallito Calcium 8.3 L AST 1399 H ALT 1499 H Troponin I Total Protein 5.8 L Albumin 3.0 L - Diagnostic Findings Chest x-ray: image reviewed CT scan - chest: image reviewed Assessment and Plan Plan: Assessment 1 acute CHF with secondary shortness of breath or development of a right-sided pleural effusion. Patient ejection fraction is around less than 20% on the recent echocardiogram. This is a new onset heart failure. 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 The patient was seen by Dr. Verdugo for further workup. The Eliquis dose was suboptimal and the patient's dose was increased to 5 mg by mouth twice a day 7 COPD 8 chronic smoking 9 right-sided pleural effusion secondary to above 10 abnormal LFTs consistent with acute hepatitis. Rule out shock liver. Doubt cholecystitis. Ultrasound of the right upper quadrant was noted. 11 troponin leak Plan Cover the patient empiric antibiotics with Levaquin. Obtain sputum Gram stain and culture. Obtain blood culture. Agree on IV diuresis with Lasix. Aldactone was also added.Apixaban those need to be adjusted to family grams by mouth twice a day. We'll continue to follow. Cardiology input is appreciated regarding the new onset heart failure. Dietitian to evaluate nutritional support. We'll continue to follow.
[2016-11-20] MEDS: LEVALBUTEROL NEB 1.25 MG/3 ML AMP INHALATION SCH (19:38)
[2016-11-21 06:45] LABS: Anisocytosis Slight; Basophils % (A) 0 %; CH 32.1; CHCM 33.4; Eosinophils % (A) 1 %; HCT 33.2 % (34.0-46.0); HDW 2.89; HGB 11.2 gm/dL (11.4-16.0); Luc # (Auto) 0.08; Luc % (Auto) 1; Lymphocytes # (A) 1.3 k/uL (1.0-4.8); Lymphocytes % (A) 16 %; MCH 32.5 pg (25.0-35.0); MCHC 33.7 g/dL (31.0-37.0); MCV 96.5 fL (80.0-100.0); Macrocytosis Slight; Mean Platelet Volume 9.4; Monocytes # (A) 0.5 k/uL (0-1.0); Monocytes % (A) 6 %; Neutrophils # (A) 6.2 k/uL (1.3-7.7); Neutrophils % (A) 76 %; RBC 3.43 m/uL (3.80-5.40); RDW 16.5 % (11.5-15.5); WBC 8.1 k/uL (3.8-10.6)
[2016-11-21 06:57] LABS: ALT 989 U/L (9-52); AST 496 U/L (14-36); Alkaline Phosphatase 114 U/L (38-126); Anion Gap 8 mmol/L; Blood Urea Nitrogen 39 mg/dL (7-17); Calcium 8.4 mg/dL (8.4-10.2); Carbon Dioxide 29 mmol/L (22-30); Chloride 105 mmol/L (98-107); Glucose 91 mg/dL (74-99); Non-African American GFR(MDRD) 55 (>60 ml/min/1.73 sqM); Potassium 3.5 mmol/L (3.5-5.1); Sodium 142 mmol/L (137-145); Total Bilirubin 0.9 mg/dL (0.2-1.3); Total Protein 5.8 g/dL (6.3-8.2)
[2016-11-21] MEDS: LEVALBUTEROL NEB 1.25 MG/3 ML AMP INHALATION SCH ×3 (07:40→20:11)
[2016-11-21] MEDS: SYMBICORT 160-4.5 MCG INHALER INHALATION SCH ×2 (07:40→20:12)
[2016-11-21] MEDS: NICOTINE 21MG/24HR PATCH TRANSDERM SCH (09:38)
[2016-11-21] MEDS: FUROSEMIDE 10 MG/ML 4 ML VIAL IV SCH ×3 (09:38→23:03)
[2016-11-21] MEDS: LISINOPRIL 2.5 MG TAB PO SCH (09:39)
[2016-11-21] MEDS: THIAMINE 100 MG TAB PO SCH ×2 (09:39→17:24)
[2016-11-21] MEDS: SPIRONOLACTONE 25 MG TAB PO SCH (09:39)
[2016-11-21] MEDS: PANTOPRAZOLE 40 MG TABLET PO SCH (09:39)
[2016-11-21] MEDS: APIXABAN 5 MG TAB PO SCH ×2 (09:39→20:55)
--- NOTE | 2016-11-21 12:35 | P.PN ---
Subjective This is a very pleasant 61-year-old female patient was admitted for increased shortness of breath. The patient has an extensive medical history and her health has been gradually declining over the past 6-8 months. She was involved in a stroke during her visits visit to [facility]. 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 At that point, the patient had surgical resection of the small bowel and she was left with a short.resulting into some degree of malabsorption. The patient was given a PICC line through which she was receiving TPN for nutritional support. At the later stage the PICC line got infected and the patient is currently being supplemented with a PEG tube feeding for nutritional support. As for the CVA, the patient had a vascular intervention, probably a neurovascular intervention where the clot was busted or removed and she has minimal residual deficits and weakness of the right upper extremity. She was placed on anticoagulation and currently she is being followed up by a colorectal surgeon through [facility] in [place], [place].. She has been taking Eliquis 5 mg a daily basis as a long-term anticoagulants. She came into the hospital because of increased cough and chest congestion and worsening shortness of breath with his own on for the past 3 weeks. She had a CAT scan of the chest that showed a moderate-sized right- sided pleural effusion along with some right basilar infiltration. The CTA did not rule in or out the possibility of pulmonary embolism although based on my review it's less likely knowing that I do not see any significant filling defects. The patient had an echocardiogram that showed an ejection fraction of less than 20%. The BNP level was 27,001 100. There was a mild troponin leak with troponin levels being 0.045, 0.048 and 0.054 respectively. Based on all this, she started on antibiotics. She was started on diuretics. The pulmonary and a cardiology consultation was also requested. She denies having any chest pain. No fever or chills. No aspiration. On 11/21/2016 the patient is being seen in follow-up. The patient is doing better compared to yesterday. The patient is being diuresis with IV Lasix. The patient is in a negative fluid balance. She has a congested cough. Without any significant sputum production. She was unable to give me a sputum sample for analysis. She is still on antibiotics. No chills. No fever. Renal function is stable. She is receiving enteral feeding for nutritional support. She weighs around 43.6 kg. No other significant events overnight. Overall condition is slightly improved compared to yesterday. Objective - Vital Signs Vital signs: Vital Signs Temp 97.3 F L 11/21/16 08:00 Pulse 91 11/21/16 08:00 Resp 17 11/21/16 08:00 BP 106/61 11/21/16 08:00 Pulse Ox 97 11/21/16 08:00 Intake & Output 11/20/16 11/21/16 11/21/16 18:59 06:59 18:59 Intake Total 510 205 240 Output Total 900 Balance 510 -695 240 Weight 43.6 kg Intake: Oral 480 240 Tube Feeding 30 205 Output: Urine 900 Other: # Voids 1 - Exam Thin and frail and malnourished. Not in acute distress.Head exam was generally normal. There was no scleral icterus or corneal arcus. Mucous membranes were moist.Neck was supple and without jugular venous distension, thyromegaly, or carotid bruits. Carotids were easily palpable bilaterally. There was no adenopathy. Lung sounds are diminished bilaterally. The patient is scattered rhonchi. Scattered expiratory wheezes. Breath sounds are diminished in the right lung base along with some dullness to percussion. Heart sounds are positive for an S3 gallop. No cervical murmurs appreciated. Positive S1-S2. Abdomen is soft and scars of previous surgery over the anterior abdominal wall is seen. PEG tube is clean and intact.Examination of the extremities revealed easily palpable radial, femoral and pedal pulses. There was no cyanosis, clubbing or edema. - Labs CBC & Chem 7: 11/21/16 06:25 11/21/16 06:25 Labs: Abnormal Lab Results - Last 24 Hours (Table) 11/21/16 11/21/16 Range/Units 06:25 06:25 RBC 3.43 L (3.80-5.40) m/uL Hgb 11.2 L (11.4-16.0) gm/dL Hct 33.2 L (34.0-46.0) % RDW 16.5 H (11.5-15.5) % BUN 39 H (7-17) mg/dL AST 496 H (14-36) U/L ALT 989 H (9-52) U/L Total Protein 5.8 L (6.3-8.2) g/dL Albumin 3.0 L (3.5-5.0) g/dL Microbiology - Last 24 Hours (Table) 11/20/16 11:40 Urine Culture - Preliminary Urine,Clean Catch 11/19/16 09:55 Blood Culture - Preliminary Blood No Growth after 24 hours Assessment and Plan Plan: Assessment 1 acute CHF with secondary shortness of breath or development of a right-sided pleural effusion. Patient ejection fraction is around less than 20% on the recent echocardiogram. This is a new onset heart failure. Rule out underlying ischemic artery myopathy. The patient is being diuresis with IV Lasix. The patient is also being cheered for right lower lobe pneumonia. Overall condition is improved compared to yesterday. 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 The patient was seen by Dr. Verdugo for further workup. The Eliquis dose was suboptimal and the patient's dose was increased to 5 mg by mouth twice a day 7 COPD 8 chronic smoking 9 right-sided pleural effusion secondary to above 10 abnormal LFTs consistent with acute hepatitis. Rule out shock liver. Doubt cholecystitis. Ultrasound of the right upper quadrant was noted. 11 troponin leak Plan Continue same treatment. Continued IV diuretics. Continue Levaquin. Repeat chest x-ray in the morning. We'll continue to follow. Improved compared to yesterday.
--- NOTE | 2016-11-21 13:28 | P.PN ---
Subjective Principal diagnosis: Pneumonia, CHF This is a pleasant 61-year-old female patient who presented to the emergency department with complaints of shortness of breath and cough. Patient has a history of clots in her mesenteric artery leading to necrosis of small bowel with subsequent small bowel resection, Melzer. Syndrome, smoker, prior heavy drinking, CVA following her surgery in February was she was in [place]. Patient underwent echocardiogram that showed severely impaired LV systolic function with an ejection fraction of less than 20%. Patient has been on Lasix 40 mg IV push every 8 hours. Upon examination, patient is feeling quite a bit better. Breathing easier. Objective - Vital Signs Vital signs: Vital Signs Temp 97.3 F L 11/21/16 08:00 Pulse 91 11/21/16 08:00 Resp 17 11/21/16 08:00 BP 106/61 11/21/16 08:00 Pulse Ox 97 11/21/16 08:00 Intake & Output 11/20/16 11/21/16 11/21/16 18:59 06:59 18:59 Intake Total 510 205 480 Output Total 900 900 Balance 510 -372 -420 Weight 43.6 kg Intake: Oral 480 480 Tube Feeding 30 205 Output: Urine 900 900 Other: # Voids 1 3 # Bowel Movements 0 - Exam PHYSICAL EXAMINATION: HEENT: Head is atraumatic, normocephalic. Pupils equal, round. Neck is supple. There is no elevated jugular venous pressure. HEART EXAMINATION: Heart sounds regular, S1 and S2 normal. No murmur or gallop heard. CHEST EXAMINATION: Lungs reveal diminished air entry with faint crackles bilateral bases. No chest wall tenderness is noted on palpation or with deep breathing. ABDOMEN: Soft, nontender. Bowel sounds are heard. No organomegaly noted. EXTREMITIES: 1+ peripheral pulses with no evidence of peripheral edema and no calf tenderness noted. NEUROLOGIC patient is awake, alert and oriented x3. . - Labs CBC & Chem 7: 11/21/16 06:25 11/21/16 06:25 Labs: Abnormal Lab Results - Last 24 Hours (Table) 11/21/16 11/21/16 Range/Units 06:25 06:25 RBC 3.43 L (3.80-5.40) m/uL Hgb 11.2 L (11.4-16.0) gm/dL Hct 33.2 L (34.0-46.0) % RDW 16.5 H (11.5-15.5) % BUN 39 H (7-17) mg/dL AST 496 H (14-36) U/L ALT 989 H (9-52) U/L Total Protein 5.8 L (6.3-8.2) g/dL Albumin 3.0 L (3.5-5.0) g/dL Microbiology - Last 24 Hours (Table) 11/19/16 09:55 Blood Culture - Preliminary Blood No Growth after 48 hours 11/20/16 11:40 Urine Culture - Preliminary Urine,Clean Catch Assessment and Plan Plan: Assessment and plan #1 acute congestive heart failure, systolic #2 prior history of emboli, on subtherapeutic dose of Eliquis at home #3 alcohol abuse #4 pneumonia, right lower lobe #5 nicotine dependence #6 elevated AST and ALT #7 history of CVA From cardiac standpoint, we'll obtain records from Dr. Nazario in [place]. We will decrease dose of IV Lasix. Monitor the patient's renal function. Likely start beta ramez tomorrow depending on patient's blood pressure. Further recommendations to follow [employer] note has been reviewed, I agree with a documented findings and plan of care. Patient was seen and examined.
--- NOTE | 2016-11-21 15:45 | HP ---
DATE OF ADMISSION: 11/19/2016 CHIEF COMPLAINT: Shortness of breath. HISTORY OF PRESENT ILLNESS: This 61 year old woman with a recent past medical history of multiple complex medical issues including mesenteric ischemia and thrombosis which has been treated in [place] by bowel resection which resulted in ileostomy, has been followed by primary care physician elsewhere. The patient is also followed at [facility] for reversal of ileostomy recently. The patient had malabsorption syndrome after the surgery. The patient is on TPN with right arm PICC line. The patient also had al stroke after surgery with left sided residual weakness. 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 The patient was also having difficulty in gaining weight with weight loss of about 40 pounds with malabsorption. The patient underwent PEG tube placement in [facility] for further management. EGD was done by Dr. Lopez in May earlier this year which showed some superficial erosions. Currently the patient is complaining of shortness of breath for the last three or four days, the patient has been having increasing shortness of breath and the patient had generalized weakness. The patient came to [facility] and admitted for further evaluation and treatment. The patient did not have any fever, chills. No history of any headache, loss of consciousness or seizures. The patient had plasma lactic acid up to 4.8. AST/ALT was elevated and also NT-pro BNP was 2700. Chest x-ray was done which showed bilateral infiltrate more on the left and the possibility of pneumonia versus CHF was considered at this time. A chest CT was done which did not rule out pulmonary embolism completely because of lack of segmental artery of the right lower lobe. Pleural effusion also noted. CHF also suggested at this time. There is no history of fever, rigors or chills. No history of headache, loss of consciousness or seizures. PAST MEDICAL HISTORY: History of mesenteric thrombosis and bowel resection, ileostomy and multiple other complex medical and surgical issues as mentioned earlier. History of malabsorption, history of PEG tube placement, history of breast surgery, history of Caesarean section, history of claustrophobia. History of CVA/TIA. MEDICATIONS: Prior to admission include home medications: 1. Symbicort 160/4.5 two puffs b.i.d. 2. Eliquis 5 mg po b.i.d. ALLERGIES: None. FAMILY HISTORY: History of encephalitis and cancer in the family. SOCIAL HISTORY: History of smoking on a regular basis. No history of alcohol intake. REVIEW OF SYSTEMS: ENT: No diminished vision. No diminished hearing. CARDIOVASCULAR: As mentioned earlier. RESPIRATORY: As mentioned earlier. GI: As mentioned earlier. : No dysuria. NERVOUS SYSTEM: No numbness, weakness. ALLERGY/IMMUNOLOGY: No asthma or hayfever. MUSCULOSKELETAL: as mentioned earlier. HEMATOLOGY/ONCOLOGY: No history of anemia. ENDOCRINE: No history of diabetes, hypothyroidism. CONSTITUTIONAL: As mentioned earlier. DERMATOLOGY: Negative. RHEUMATOLOGY: Negative. PSYCHIATRIC: As mentioned earlier. PHYSICAL EXAMINATION: The patient is awake, alert and oriented times three pulse is 112. Blood pressure 110/77. Respiratory rate 18. Temperature 97.3, pulse ox 92% on 4 L. HEENT: Conjunctivae pale. Oral mucosa moist. NECK: Jugular venous distention at the root of the neck. CARDIOVASCULAR: S1, S2 muffled. Ejection systolic murmur. No S3, no S4. RESPIRATORY: Breath sounds diminished at the bases. Bilateral scattered rhonchi and crackles also heard. ABDOMEN: Soft, mild diffuse distention. Mild diffuse discomfort on palpation , otherwise, no guarding, no rigidity. No mass palpable. PEG tube in situ. No ascites. LEGS: No edema. No swelling. NERVOUS SYSTEM: Higher functions as mentioned earlier. Moves all four limbs. Mild diffuse weakness. No focal motor or sensory deficits. LYMPHATICS: No lymph nodes palpable in the neck, axillae or groin. SKIN: No ulcer, rash or bleeding. JOINTS: No active deforming arthropathy. BMI 14.5. The patient is severely emaciated. Labs are at this time shows WBC 10.9, hemoglobin 12.2, INR 1.8, D. dimer 2.2, sodium 146, plasma lactic acidosis 4.8, AST, ALT noted. ASSESSMENT: 1. Shortness of breath for evaluation, possibly congestive heart failure acute exacerbation with ejection fraction unknown. 2. Possible right lower lobe pneumonia with sepsis. 3. Increased plasma lactic acid. 4. Hypernatremia. 5. Increased AST/ALT, possible hepatitis. 6. History of continued nicotine dependence. 7. Troponin 0.04 indeterminate. 8. Increased NT proBNP 2700. 9. Hypoalbuminemia with severe protein calorie malnutrition. 10. Status post PEG tube. 11. History of recent ileostomy reversal and ( ) ileostomy and small bowel resection for mesenteric ischemia. 12. Increased D. dimer. 13. History of cerebrovascular accident/transient ischemic attack with left sided residual weakness. 14. Two Caesarean sections. 15. History of claustrophobia. 16. History of continued nicotine dependence. 17. FULL CODE. RECOMMENDATIONS AND DISCUSSION: In this 61 year woman who presented with multiple complex medical issues, we will monitor the patient closely, continue the current medications. I recommend a combination of diuretics and antibiotics. Otherwise, I would also recommend pulmonary and cardiology consultation. A 2D echo will be ordered. Smoking cessation. Habitrol 14. Symptomatic treatment. Cultures. The prognosis is extremely guarded because of multiple complex medical issues. Further recommendations to follow. Will also repeat liver functions. MTDD
--- NOTE | 2016-11-22 07:50 | XR ---
EXAMINATION TYPE: XR chest 2V DATE OF EXAM: 11/22/2016 COMPARISON: 11/20/2016 INDICATION: Difficulty breathing, CHF TECHNIQUE: Frontal and lateral views of the chest are obtained. FINDINGS: The heart size is normal. The pulmonary vasculature is normal. Small right pleural effusion is present. PICC line enters on the right with the tip in the superior v garcía cava region.. IMPRESSION: 1. No acute pulmonary process.
[2016-11-22 07:54] LABS: Anisocytosis Slight; Basophils % (A) 0 %; CH 31.4; Eosinophils # (A) 0.1 k/uL (0-0.7); Eosinophils % (A) 1 %; HCT 38.7 % (34.0-46.0); HDW 3.06; HGB 13.2 gm/dL (11.4-16.0); Hypochromasia Slight; Luc # (Auto) 0.14; Luc % (Auto) 2; Lymphocytes # (A) 1.2 k/uL (1.0-4.8); Lymphocytes % (A) 17 %; MCH 32.8 pg (25.0-35.0); MCHC 34.1 g/dL (31.0-37.0); Macrocytosis Slight; Mean Platelet Volume 8.6; Monocytes # (A) 0.5 k/uL (0-1.0); Monocytes % (A) 7 %; Neutrophils # (A) 5.4 k/uL (1.3-7.7); Neutrophils % (A) 73 %; RBC 4.04 m/uL (3.80-5.40); RDW 16.3 % (11.5-15.5); WBC 7.4 k/uL (3.8-10.6); WBC (Perox) 8.17
[2016-11-22 08:00] LABS: ALT 787 U/L (9-52); AST 249 U/L (14-36); Alkaline Phosphatase 128 U/L (38-126); Anion Gap 11 mmol/L; Blood Urea Nitrogen 31 mg/dL (7-17); Calcium 8.8 mg/dL (8.4-10.2); Carbon Dioxide 32 mmol/L (22-30); Chloride 99 mmol/L (98-107); Glucose 97 mg/dL (74-99); Non-African American GFR(MDRD) >60 (>60 ml/min/1.73 sqM); Potassium 3.2 mmol/L (3.5-5.1); Sodium 142 mmol/L (137-145); Total Protein 6.4 g/dL (6.3-8.2)
[2016-11-22] MEDS: LEVALBUTEROL NEB 1.25 MG/3 ML AMP INHALATION SCH ×3 (08:05→20:04)
[2016-11-22] MEDS: SYMBICORT 160-4.5 MCG INHALER INHALATION SCH ×2 (08:05→20:04)
[2016-11-22 08:41] LABS: Polychromasia Present
[2016-11-22] MEDS: NICOTINE 21MG/24HR PATCH TRANSDERM SCH (09:42)
[2016-11-22] MEDS: FUROSEMIDE 10 MG/ML 4 ML VIAL IV SCH ×3 (09:42→23:13)
[2016-11-22] MEDS: APIXABAN 5 MG TAB PO SCH ×2 (09:42→20:44)
[2016-11-22] MEDS: LISINOPRIL 2.5 MG TAB PO SCH (09:43)
[2016-11-22] MEDS: THIAMINE 100 MG TAB PO SCH ×2 (09:43→17:32)
[2016-11-22] MEDS: PANTOPRAZOLE 40 MG TABLET PO SCH (09:43)
[2016-11-22] MEDS: SPIRONOLACTONE 25 MG TAB PO SCH (09:43)
[2016-11-22] MEDS ORDERED: LEVOFLOXACIN 750 MG TAB PO SCH (12:00)
--- NOTE | 2016-11-22 12:45 | P.PN ---
Subjective This is a very pleasant 61-year-old female patient was admitted for increased shortness of breath. The patient has an extensive medical history and her health has been gradually declining over the past 6-8 months. She was involved in a stroke during her visits visit to [facility]. 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 At that point, the patient had surgical resection of the small bowel and she was left with a short.resulting into some degree of malabsorption. The patient was given a PICC line through which she was receiving TPN for nutritional support. At the later stage the PICC line got infected and the patient is currently being supplemented with a PEG tube feeding for nutritional support. As for the CVA, the patient had a vascular intervention, probably a neurovascular intervention where the clot was busted or removed and she has minimal residual deficits and weakness of the right upper extremity. She was placed on anticoagulation and currently she is being followed up by a colorectal surgeon through [facility] in [place], [place].. She has been taking Eliquis 5 mg a daily basis as a long-term anticoagulants. She came into the hospital because of increased cough and chest congestion and worsening shortness of breath with his own on for the past 3 weeks. She had a CAT scan of the chest that showed a moderate-sized right- sided pleural effusion along with some right basilar infiltration. The CTA did not rule in or out the possibility of pulmonary embolism although based on my review it's less likely knowing that I do not see any significant filling defects. The patient had an echocardiogram that showed an ejection fraction of less than 20%. The BNP level was 27,001 100. There was a mild troponin leak with troponin levels being 0.045, 0.048 and 0.054 respectively. Based on all this, she started on antibiotics. She was started on diuretics. The pulmonary and a cardiology consultation was also requested. She denies having any chest pain. No fever or chills. No aspiration. On 11/21/2016 the patient is being seen in follow-up. The patient is doing better compared to yesterday. The patient is being diuresis with IV Lasix. The patient is in a negative fluid balance. She has a congested cough. Without any significant sputum production. She was unable to give me a sputum sample for analysis. She is still on antibiotics. No chills. No fever. Renal function is stable. She is receiving enteral feeding for nutritional support. She weighs around 43.6 kg. No other significant events overnight. Overall condition is slightly improved compared to yesterday. On 2016 the patient is still being treated a medical floor. The patient is being diuresis with Lasix 40 mg IV push every 8 hours the patient is also on Levaquin 750 mg every 48 hours. The patient is on Symbicort and Xopenex tablets treatments around the clock. She is on a nicotine patch. Today's chest x-ray shows some residual right-sided pleural effusion. No chest pain. She is tolerating her enteral feeding for nutritional support. She feels better. She is wondering whether she can be released home. This is to be further discussed with cardiology is managing the patient's congestion heart failure. She remains in a negative fluid balance. She has put out more than 3 L over the past 24 hours with diuresis. Objective - Vital Signs Vital signs: Vital Signs Temp 96.9 F L 11/22/16 08:00 Pulse 94 11/22/16 08:00 Resp 19 11/22/16 08:00 BP 105/56 11/22/16 08:00 Pulse Ox 100 11/22/16 08:00 Intake & Output 11/21/16 11/22/16 11/22/16 18:59 06:59 18:59 Intake Total 480 105 Output Total 900 1200 Balance -420 -1095 Weight 42.8 kg Intake: Oral 480 Tube Feeding 105 Output: Urine 900 1200 Other: # Voids 3 # Bowel Movements 0 - Exam Thin and frail and malnourished. Not in acute distress.Head exam was generally normal. There was no scleral icterus or corneal arcus. Mucous membranes were moist.Neck was supple and without jugular venous distension, thyromegaly, or carotid bruits. Carotids were easily palpable bilaterally. There was no adenopathy. Lung sounds are diminished bilaterally. The patient is scattered rhonchi. Scattered expiratory wheezes. Breath sounds are diminished in the right lung base along with some dullness to percussion. Heart sounds are positive for an S3 gallop. No cervical murmurs appreciated. Positive S1-S2. Abdomen is soft and scars of previous surgery over the anterior abdominal wall is seen. PEG tube is clean and intact.Examination of the extremities revealed easily palpable radial, femoral and pedal pulses. There was no cyanosis, clubbing or edema. - Labs CBC & Chem 7: 11/22/16 07:06 11/22/16 07:06 Labs: Abnormal Lab Results - Last 24 Hours (Table) 11/22/16 11/22/16 Range/Units 07:06 07:06 RDW 16.3 H (11.5-15.5) % Potassium 3.2 L (3.5-5.1) mmol/L Carbon Dioxide 32 H (22-30) mmol/L BUN 31 H (7-17) mg/dL AST 249 H (14-36) U/L ALT 787 H (9-52) U/L Alkaline Phosphatase 128 H (38-126) U/L Albumin 3.4 L (3.5-5.0) g/dL Microbiology - Last 24 Hours (Table) 11/19/16 09:55 Blood Culture - Preliminary Blood No Growth after 72 hours 11/20/16 11:40 Urine Culture - Final Urine,Clean Catch Assessment and Plan Plan: Assessment 1 acute CHF with secondary shortness of breath or development of a right-sided pleural effusion. Patient ejection fraction is around less than 20% on the recent echocardiogram. This is a new onset heart failure. Rule out underlying ischemic artery myopathy. The patient is being diuresis with IV Lasix. The patient is also being cheered for right lower lobe pneumonia. Overall condition is improved compared to yesterday. 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 The patient was seen by Dr. Verdugo for further workup. The Eliquis dose was suboptimal and the patient's dose was increased to 5 mg by mouth twice a day 7 COPD 8 chronic smoking 9 right-sided pleural effusion secondary to above 10 abnormal LFTs consistent with acute hepatitis. Rule out shock liver. Doubt cholecystitis. Ultrasound of the right upper quadrant was noted. 11 troponin leak Plan Complete a total of 7 days of antibiotic treatment. The patient is doing well. The diuretics will be left up to cardiology to decide. The patient is still responding to IV Lasix. She can be transitioned to oral Lasix in the next 24 hours. Discharge planning is in progress. Clinically improved. Continue enteral feeding for nutritional support. Increased level of activity as tolerated. Smoking cessation counseling was again done.
--- NOTE | 2016-11-22 17:02 | P.PN ---
Subjective This 61-year-old female with history of cardiomyopathy and ejection fraction 20% , is admitted to the hospital with increasing CHF. She seemed to feeling better. She is on diuretic therapy. Patient was put on a smoker less today. Her blood pressures about 100/50. We are going to add small dose of Coreg. We' re still in the process of getting information from previous solar installation manager. Meanwhile, she'll stay on the current medical therapy Objective - Vital Signs Vital signs: Vital Signs Temp 96.9 F L 11/22/16 08:00 Pulse 94 11/22/16 14:08 Resp 19 11/22/16 12:00 BP 102/66 11/22/16 12:00 Pulse Ox 97 11/22/16 12:00 Intake & Output 11/21/16 11/22/16 11/22/16 18:59 06:59 18:59 Intake Total 480 105 Output Total 900 1200 Balance -420 -1095 Weight 42.8 kg Intake: Oral 480 Tube Feeding 105 Output: Urine 900 1200 Other: # Voids 3 # Bowel Movements 0 - Labs CBC & Chem 7: 11/22/16 07:06 11/22/16 07:06 Labs: Abnormal Lab Results - Last 24 Hours (Table) 11/22/16 11/22/16 Range/Units 07:06 07:06 RDW 16.3 H (11.5-15.5) % Potassium 3.2 L (3.5-5.1) mmol/L Carbon Dioxide 32 H (22-30) mmol/L BUN 31 H (7-17) mg/dL AST 249 H (14-36) U/L ALT 787 H (9-52) U/L Alkaline Phosphatase 128 H (38-126) U/L Albumin 3.4 L (3.5-5.0) g/dL Microbiology - Last 24 Hours (Table) 11/19/16 09:55 Blood Culture - Preliminary Blood No Growth after 72 hours 11/20/16 11:40 Urine Culture - Final Urine,Clean Catch Assessment and Plan (1) Cardiomyopathy Status: Acute (2) Congestive heart failure Status: Acute Plan: Continue with SHELDON inhibitor or diuretics. I'll also add small dose of Coreg. Further recommendation depending upon the clinical course. Meanwhile we will get information from her primary solar installation manager
[2016-11-22] MEDS ORDERED: ACETAMINOPHEN TAB 325 MG TAB PO PRN (17:26)
[2016-11-22] MEDS: HYDROmorphone 1 MG/ML 1 ML SYRINGE IVP PRN (18:05)
[2016-11-22] MEDS: CARVEDILOL 1.563 MG TAB PO SCH (18:35)
[2016-11-23] MEDS: HYDROmorphone 1 MG/ML 1 ML SYRINGE IVP PRN ×2 (00:08→05:52)
[2016-11-23 06:09] LABS: Anisocytosis Slight; Basophils % (A) 0 %; CHCM 33.8; Eosinophils # (A) 0.1 k/uL (0-0.7); Eosinophils % (A) 1 %; HCT 39.7 % (34.0-46.0); HDW 3.03; HGB 13.6 gm/dL (11.4-16.0); Luc # (Auto) 0.14; Luc % (Auto) 2; Lymphocytes # (A) 1.5 k/uL (1.0-4.8); Lymphocytes % (A) 18 %; MCH 32.6 pg (25.0-35.0); MCHC 34.3 g/dL (31.0-37.0); MCV 95.1 fL (80.0-100.0); Mean Platelet Volume 8.7; Monocytes # (A) 0.5 k/uL (0-1.0); Monocytes % (A) 6 %; Neutrophils # (A) 6.4 k/uL (1.3-7.7); Neutrophils % (A) 74 %; RBC 4.18 m/uL (3.80-5.40); RDW 16.1 % (11.5-15.5); WBC 8.7 k/uL (3.8-10.6); WBC (Perox) 9.01
[2016-11-23 06:21] LABS: ALT 632 U/L (9-52); AST 165 U/L (14-36); Alkaline Phosphatase 117 U/L (38-126); Anion Gap 12 mmol/L; Blood Urea Nitrogen 39 mg/dL (7-17); Calcium 9.2 mg/dL (8.4-10.2); Carbon Dioxide 33 mmol/L (22-30); Chloride 96 mmol/L (98-107); Glucose 107 mg/dL (74-99); Non-African American GFR(MDRD) >60 (>60 ml/min/1.73 sqM); Potassium 3.7 mmol/L (3.5-5.1); Sodium 141 mmol/L (137-145); Total Bilirubin 0.9 mg/dL (0.2-1.3); Total Protein 6.7 g/dL (6.3-8.2)
[2016-11-23] MEDS: CARVEDILOL 1.563 MG TAB PO SCH (06:47)
[2016-11-23] MEDS: LEVALBUTEROL NEB 1.25 MG/3 ML AMP INHALATION SCH ×2 (08:09→13:47)
[2016-11-23] MEDS: SYMBICORT 160-4.5 MCG INHALER INHALATION SCH (08:09)
[2016-11-23 08:37] VITALS: PULSE 98; RESP 16; TEMP 97.3
[2016-11-23] MEDS: SPIRONOLACTONE 25 MG TAB PO SCH (08:38)
[2016-11-23] MEDS: PANTOPRAZOLE 40 MG TABLET PO SCH (08:38)
[2016-11-23] MEDS: APIXABAN 5 MG TAB PO SCH (08:38)
[2016-11-23] MEDS: THIAMINE 100 MG TAB PO SCH (08:38)
[2016-11-23] MEDS: FUROSEMIDE 10 MG/ML 4 ML VIAL IV SCH (08:39)
[2016-11-23] MEDS: NICOTINE 21MG/24HR PATCH TRANSDERM SCH (08:39)
[2016-11-23 10:23] VITALS: BMI 13.7
[2016-11-23] MEDS: LISINOPRIL 2.5 MG TAB PO SCH ×2 (12:01→13:51)
--- NOTE | 2016-11-23 12:06 | P.PN ---
Subjective Principal diagnosis: Acute systolic congestive heart failure This is a very pleasant 61-year-old female patient was admitted for increased shortness of breath. The patient has an extensive medical history and her health has been gradually declining over the past 6-8 months. She was involved in a stroke during her visits visit to [facility]. 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 At that point, the patient had surgical resection of the small bowel and she was left with a short.resulting into some degree of malabsorption. The patient was given a PICC line through which she was receiving TPN for nutritional support. At the later stage the PICC line got infected and the patient is currently being supplemented with a PEG tube feeding for nutritional support. As for the CVA, the patient had a vascular intervention, probably a neurovascular intervention where the clot was busted or removed and she has minimal residual deficits and weakness of the right upper extremity. She was placed on anticoagulation and currently she is being followed up by a colorectal surgeon through [facility] in [place], [place].. She has been taking Eliquis 5 mg a daily basis as a long-term anticoagulants. She came into the hospital because of increased cough and chest congestion and worsening shortness of breath with his own on for the past 3 weeks. She had a CAT scan of the chest that showed a moderate-sized right- sided pleural effusion along with some right basilar infiltration. The CTA did not rule in or out the possibility of pulmonary embolism although based on my review it's less likely knowing that I do not see any significant filling defects. The patient had an echocardiogram that showed an ejection fraction of less than 20%. The BNP level was 27,001 100. There was a mild troponin leak with troponin levels being 0.045, 0.048 and 0.054 respectively. Based on all this, she started on antibiotics. She was started on diuretics. The pulmonary and a cardiology consultation was also requested. She denies having any chest pain. No fever or chills. No aspiration. On 11/21/2016 the patient is being seen in follow-up. The patient is doing better compared to yesterday. The patient is being diuresis with IV Lasix. The patient is in a negative fluid balance. She has a congested cough. Without any significant sputum production. She was unable to give me a sputum sample for analysis. She is still on antibiotics. No chills. No fever. Renal function is stable. She is receiving enteral feeding for nutritional support. She weighs around 43.6 kg. No other significant events overnight. Overall condition is slightly improved compared to yesterday. On the patient is still being treated a medical floor. The patient is being diuresis with Lasix 40 mg IV push every 8 hours the patient is also on Levaquin 750 mg every 48 hours. The patient is on Symbicort and Xopenex tablets treatments around the clock. She is on a nicotine patch. Today's chest x-ray shows some residual right-sided pleural effusion. No chest pain. She is tolerating her enteral feeding for nutritional support. She feels better. She is wondering whether she can be released home. This is to be further discussed with cardiology is managing the patient's congestion heart failure. She remains in a negative fluid balance. She has put out more than 3 L over the past 24 hours with diuresis. On 11/23/2016, patient was reevaluated again, continues to do very well with diuretics. Remains on antibiotics for possible right lower lobe pneumonia. Patient is feeling much better overall. And she is being considered for possible discharge planning in the next 24-48 hours. Labs were reviewed she had a relatively normal and basic metabolic profile, and a relatively normal CBC. Chest x-ray shows a small right-sided pleural effusion and minimal right lower lobe atelectasis. Objective - Vital Signs Vital signs: Vital Signs Temp 97.3 F L 11/23/16 08:00 Pulse 98 11/23/16 08:00 Resp 16 11/23/16 11:45 BP 91/62 11/23/16 11:45 Pulse Ox 93 L 11/23/16 11:45 Intake & Output 11/22/16 11/23/16 11/23/16 18:59 06:59 18:59 Intake Total 180 1035 Output Total 2500 Balance 180 1035 -2500 Weight 38.7 kg 38.7 kg Intake: Oral 180 Tube Feeding 945 Other 90 Output: Urine 2500 - Exam Physical Exam: Revealed a frail looking and chronically ill-looking female, malnourished. In no distress. HEENT:[Neck is supple.] [No neck masses.] [No thyromegaly.] [No JVD.] Chest: [Diminished breath sounds at the bases, especially at the right base, minimal crackles at the right base noted. Cardiac Exam: [Normal S1 and S2, no S3 gallop, no murmur.] Abdomen: [Soft, nontender, no megaly, no rebound, no guarding, normal bowel sounds.] Extremities: [No clubbing, no edema, no cyanosis.] Neurological Exam: [No focal neurologic deficit.] - Labs CBC & Chem 7: 11/23/16 05:43 11/23/16 05:40 Labs: Abnormal Lab Results - Last 24 Hours (Table) 11/23/16 11/23/16 Range/Units 05:40 05:43 RDW 16.1 H (11.5-15.5) % Chloride 96 L (98-107) mmol/L Carbon Dioxide 33 H (22-30) mmol/L BUN 39 H (7-17) mg/dL Glucose 107 H (74-99) mg/dL AST 165 H (14-36) U/L ALT 632 H (9-52) U/L Microbiology - Last 24 Hours (Table) 11/19/16 09:55 Blood Culture - Preliminary Blood No Growth after 72 hours Assessment and Plan Plan: 1 acute CHF with secondary shortness of breath or development of a right-sided pleural effusion. Patient ejection fraction is around less than 20% on the recent echocardiogram. This is a new onset heart failure. Rule out underlying ischemic artery myopathy. The patient is being diuresis with IV Lasix. The patient is also being cheered for right lower lobe pneumonia. Overall condition is improved compared to yesterday. 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 The patient was seen by Dr. Verdugo for further workup. The Eliquis dose was suboptimal and the patient's dose was increased to 5 mg by mouth twice a day 7 COPD 8 chronic smoking 9 right-sided pleural effusion secondary to above 10 abnormal LFTs consistent with acute hepatitis. Rule out shock liver. Doubt cholecystitis. Ultrasound of the right upper quadrant was noted. 11 troponin leak Recommendation: Continue present treatment plan including antibiotics, diuretics if felt necessary by cardiology, continue nutritional support, patient was already counseled regarding smoking cessation, will follow on when necessary basis. Time with Patient: Less than 30
--- NOTE | 2016-11-23 13:21 | P.PN ---
Subjective Principal diagnosis: CHF His is a 61-year-old female with history of cardiomyopathy and ejection fraction of 20%. She was admitted to the hospital with congestive cardiac failure. Overall she is feeling much better today. Is currently on by mouth Lasix. Blood pressure running in the low 90s, she is asymptomatic with this. Potassium today is 3.7, BUN 39, creatinine 0.9. LFTs improving. She is currently on Eliquis 5 mg one tablet by mouth twice a day, Coreg, Lasix 40 by mouth twice a day, lisinopril 2.5 mg daily, and Aldactone added. She has been advised to continue these medications. She will follow-up with her nutrition instructor in [facility] in one week. Lytes BUN and creatinine weekly. Objective - Vital Signs Vital signs: Vital Signs Temp 97.3 F L 11/23/16 08:00 Pulse 98 11/23/16 08:00 Resp 16 11/23/16 11:45 BP 91/62 11/23/16 11:45 Pulse Ox 93 L 11/23/16 11:45 Intake & Output 11/22/16 11/23/16 11/23/16 18:59 06:59 18:59 Intake Total 180 1035 Output Total 2500 Balance 180 1035 -2500 Weight 38.7 kg 38.7 kg Intake: Oral 180 Tube Feeding 945 Other 90 Output: Urine 2500 - Exam PHYSICAL EXAMINATION: HEENT: Head is atraumatic, normocephalic. Pupils equal, round. Neck is supple. There is no elevated jugular venous pressure. HEART EXAMINATION: Heart S1, S2 normal. No murmur or gallop heard. CHEST EXAMINATION: Lungs are clear with fine crackles to bilateral bases. ABDOMEN: Soft, nontender. Bowel sounds are heard. No organomegaly noted. EXTREMITIES: 1+ peripheral pulses with no evidence of peripheral edema and no calf tenderness noted. NEUROLOGIC patient is awake, alert and oriented -3.] . - Labs CBC & Chem 7: 11/23/16 05:43 11/23/16 05:40 Labs: Abnormal Lab Results - Last 24 Hours (Table) 11/23/16 11/23/16 Range/Units 05:40 05:43 RDW 16.1 H (11.5-15.5) % Chloride 96 L (98-107) mmol/L Carbon Dioxide 33 H (22-30) mmol/L BUN 39 H (7-17) mg/dL Glucose 107 H (74-99) mg/dL AST 165 H (14-36) U/L ALT 632 H (9-52) U/L Microbiology - Last 24 Hours (Table) 11/19/16 09:55 Blood Culture - Preliminary Blood No Growth after 96 hours Assessment and Plan (1) Systolic CHF, acute on chronic Status: Acute (2) Hx of pulmonary embolus Status: Acute (3) ETOH abuse Status: Acute (4) Pneumonia Status: Acute (5) Nicotine dependence Status: Acute (6) History of CVA (cerebrovascular accident) Status: Acute Plan: From cardiology's perspective, patient may be able to be discharged home today. She will follow-up with her nutrition instructor in [place]. She was been advised to continue the Coreg, SHELDON inhibitor, diuretics, and Aldactone. Lytes BUN and creatinine weekly. DNP note has been reviewed, I agree with a documented findings and plan of care. Patient was seen and examined.
[2016-11-23 13:51] VITALS: BP 98/58
[2016-11-23] MEDS ORDERED: FUROSEMIDE 40 MG TAB PO SCH (16:00)
[2016-11-24] MEDS ORDERED: SPIRONOLACTONE 25 MG TAB PO SCH (09:00)
== END 2016-11-23 15:13 | disposition home or self-care (01) | DRG 291 ==
LOC: EC 09:55 → 6SEL 13:17
PROVIDERS: ADMIT Hospitalist; ATTEND Hospitalist
PROC: 3E0G76Z Introduction of Nutritional Substance into Upper GI, Via Natural or Artificial Opening (ICD-10-PCS; principal; 2016-11-19)
DX: I50.23 Acute on chronic systolic (congestive) heart failure (principal); E43 Unspecified severe protein-calorie malnutrition; J18.9 Pneumonia, unspecified organism; E87.2 Acidosis; K91.2 Postsurgical malabsorption, not elsewhere classified; E87.0 Hyperosmolality and hypernatremia; Z79.01 Long term (current) use of anticoagulants; J44.0 Chronic obstructive pulmonary disease with (acute) lower respiratory infection; Z68.1 Body mass index [BMI] 19.9 or less, adult; B17.9 Acute viral hepatitis, unspecified; I69.351 Hemiplegia and hemiparesis following cerebral infarction affecting right dominant side; I25.5 Ischemic cardiomyopathy; T45.511A Poisoning by anticoagulants, accidental (unintentional), initial encounter; R00.0 Tachycardia, unspecified; R74.8 Abnormal levels of other serum enzymes; F40.240 Claustrophobia; F17.200 Nicotine dependence, unspecified, uncomplicated; F10.10 Alcohol abuse, uncomplicated; Z79.51 Long term (current) use of inhaled steroids; Z86.711 Personal history of pulmonary embolism; Z71.3 Dietary counseling and surveillance; Z93.1 Gastrostomy status; Z71.6 Tobacco abuse counseling; Z98.51 Tubal ligation status; Z80.9 Family history of malignant neoplasm, unspecified; Z83.1 Family history of other infectious and parasitic diseases; Z90.49 Acquired absence of other specified parts of digestive tract; Z86.19 Personal history of other infectious and parasitic diseases; Z87.19 Personal history of other diseases of the digestive system; Z86.718 Personal history of other venous thrombosis and embolism
CPT/HCPCS: 36415; 71020; 71275; 76705; 80053; 80074; 80306; 81003; 82550; 82553; 83605; 83735; 83880; 84484; 85025; 85379; 85610; 85730; 87040; 87070; 87086; 87205; 93005; 93306; 94640; 96361; 96365; 96366; 99291

== ENCOUNTER 2017-12-24 08:25 | Day surgery (SDC) | payer BC ==
[2017-12-21 14:29] VITALS: BMI 13.8
[2017-12-24 09:29] VITALS: RESP 16; TEMP 97.9
[2017-12-24] MEDS ORDERED: LIDOCAINE 1% 20 ML VIAL (10MG/ML) FOR IV START INTRADERMA ONE (09:34)
[2017-12-24] MEDS ORDERED: PROPOFOL 10 MG/ML 20 ML VIAL IV ONE (09:48)
--- NOTE | 2017-12-24 09:58 | P.PCN ---
Date of Procedure: 12/24/17 Procedure(s) Performed: BRIEF HISTORY: Patient is a 62-year-old, pleasant,, white female, scheduled for an upper endoscopy as a part of evaluation of epigastric pain and severe reflux symptoms. She had explained a laparotomy when she was visiting [facility] into the and underwent small bowel resection for acute mesenteric ischemia. Following that she had an ileostomy placed. She had reversal of the ileostomy [facility] in January 2070 at which time she also had an upper endoscopy with PEG tube placement . She gained about 10 pounds in the last 10 months. At this time she is been eating reasonably well and has not used the PEG tube for feeds for almost 3 months. She is been complaint of intermittent epigastric discomfort and heartburn. She was recently started on Prilosec 20 mg daily and feeling better. She is scheduled for an upper endoscopy as well as PEG tube removal today. PROCEDURE PERFORMED: Esophagogastroduodenoscopy with PEG tube removal. PREOPERATIVE DIAGNOSIS: GERD/epigastric pain. History of PEG tube placement a year ago IV sedation per anesthesia. PROCEDURE: After informed consent was obtained, the patient was brought into the endoscopy unit. IV sedation was administered by Anesthesia under continuous monitoring. Initially the Olympus GIF-140 video endoscope was inserted into the mouth. Esophagus intubated without any difficulty. It was gradually advanced into the stomach and duodenum and carefully examined. The bulb and the second part of the duodenum appeared normal. The scope at this time was withdrawn to the stomach, adequately insufflated with air, and upon careful examination, mucosa of the antrum had mild gastritis. The, body, cardia and the fundus appeared normal. The internal bumper of the PEG tube was The seen along the greater curvature of the stomach and the body of the stomach. At this time with gentle traction I was able to pull out the PEG tube without any difficulty. The scope was then withdrawn into the esophagus. The GE junction was located at 39 cm from the incisors. The esophagus appeared normal. There were no erosions or ulcerations seen and the patient tolerated the procedure well. IMPRESSION: 1. Mild antral gastritis. 2. Successful PEG tube removal as described above. RECOMMENDATIONS: The findings of this examination were discussed with the patient as well as as well as a family. She was advised to continue with Prilosec 20 mg daily for 6 weeks. She'll be seen in the office in 6 weeks .
[2017-12-24 10:17] VITALS: PULSE 76
[2017-12-24 10:28] VITALS: BP 132/81
== END 2017-12-24 11:02 | disposition home or self-care (01) ==
LOC: ORWHC2ENDO 08:25
PROVIDERS: ATTEND Internal Medicine Gastroenterology
DX: Z43.1 Encounter for attention to gastrostomy (principal); K21.9 Gastro-esophageal reflux disease without esophagitis; K29.70 Gastritis, unspecified, without bleeding; I48.91 Unspecified atrial fibrillation; I10 Essential (primary) hypertension; F17.200 Nicotine dependence, unspecified, uncomplicated; Z79.01 Long term (current) use of anticoagulants; Z79.899 Other long term (current) drug therapy; Z86.73 Personal history of transient ischemic attack (TIA), and cerebral infarction without residual deficits
CPT/HCPCS: 43247; J2704; 43235

== ENCOUNTER 2019-02-08 09:26 | Day surgery (SDC) | payer BC ==
[2019-02-06 15:48] VITALS: BMI 14.2
[2019-02-08 10:15] VITALS: RESP 16; TEMP 98
[2019-02-08] MEDS ORDERED: LIDOCAINE 1% 20 ML VIAL (10MG/ML) FOR IV START INTRADERMA ONE (10:24)
[2019-02-08] MEDS ORDERED: LIDOCAINE 1% INJ 10MG/ML (20 ML MDV) ONE (10:43)
[2019-02-08] MEDS ORDERED: PROPOFOL 10 MG/ML 20 ML VIAL IV ONE (10:43)
[2019-02-08] MEDS ORDERED: fentaNYL (PF) 50 MCG/ML 2 ML AMP ONE (10:43)
[2019-02-08] MEDS ORDERED: MIDAZOLAM 2 MG/2 ML VIAL ONE (10:43)
--- NOTE | 2019-02-08 10:57 | P.PCN ---
Date of Procedure: 02/08/19 Procedure(s) Performed: BRIEF HISTORY: Patient is a 63-year-old pleasant female, scheduled for an elective colonoscopy as a part of screening for colorectal neoplasia. PROCEDURE PERFORMED: Colonoscopy. PREOPERATIVE DIAGNOSIS: Screening for colon cancer. IV sedation per Anesthesia. PROCEDURE: After informed consent was obtained, the patient, was brought into the endoscopy unit. IV sedation was administered by Anesthesia under continuous monitoring. Digital rectal examination was normal. Initially the Olympus CF-160 flexible video colonoscope was then inserted in the rectum, gradually advanced into the cecum without any difficulty. Careful examination was performed as the scope was gradually being withdrawn. Ileocecal valve and the appendiceal orifice were visualized and appeared normal. Prep was excellent. Mucosa of the cecum, ascending colon, transverse colon, descending colon, sigmoid colon, and rectum appeared normal. Retroflexion was performed in the rectum and no lesions were seen. The patient tolerated the procedure well. IMPRESSION: Normal-appearing colon from rectum to cecum with no evidence of colorectal neoplasia . RECOMMENDATIONS: Findings of this examination were discussed with the patient as well as a family. She was advised to have a repeat screening colonoscopy in 10 years.
[2019-02-08 11:09] VITALS: BP 104/66; PULSE 74
== END 2019-02-08 11:43 | disposition home or self-care (01) ==
LOC: ORWHC2ENDO 09:26
PROVIDERS: ATTEND Internal Medicine Gastroenterology
DX: Z12.11 Encounter for screening for malignant neoplasm of colon (principal); I10 Essential (primary) hypertension; E78.5 Hyperlipidemia, unspecified; K64.8 Other hemorrhoids; K57.30 Diverticulosis of large intestine without perforation or abscess without bleeding; Z86.79 Personal history of other diseases of the circulatory system; Z79.899 Other long term (current) drug therapy; Z86.010 Personal history of colon polyps
CPT/HCPCS: G0105; J2250; J2001; J3010; J2704

== ENCOUNTER 2022-04-21 13:27 | Emergency (ER) | payer BC, MEDICARE ==
[2022-04-21] MEDS ORDERED: SODIUM CHLORIDE 0.9% 500 ML 500 ML IV STA ×2 (13:33→14:46)
[2022-04-21] MEDS ORDERED: SODIUM CHLORIDE 0.9% 1,000 ML IV STA (13:33)
--- NOTE | 2022-04-21 13:37 | ED ---
Neuro HPI - General Stated Complaint: poss stroke Time Seen by Provider: 04/21/22 13:33 - History of Present Illness Is the patient presenting with stroke symptoms?: Yes Last Known Well Date: 04/21/22 Last Known Well Time: 08:30 -: hour(s) Initial Comments: This patient is a 66-year-old woman brought by ambulance to have evaluation for suspected stroke. History is from both the patient and her . He states that he had gone out at 8:30 this morning and she was in her usual state of health. When he returned at 12:30 PM today he found that she had left sided face and body weakness. The patient is not able to get the exact time of symptoms but they suspect it was between 8:30 and 9 AM. Patient denies headache. She denies chest pain or dyspnea. No other symptoms. Patient taking eliquis for atrial fibrillation and previous stroke, states she did take last night's dose but has not taken today's yet. Location: left face, left arm, left leg History of same: Yes Place: home Quality: weak Improves With: none Worsens With: none On Anticoagulants: Yes Context: sudden onset Associated Symptoms: denies other symptoms Treatments Prior to Arrival: none - Related Data Home Medications: Home Medications Medication Instructions Recorded Confirmed Budesonide/Formoterol Fumarate 2 puff INHALATION RT-BID 11/19/16 04/21/22 [Symbicort 160-4.5 Mcg Inhaler] Metoprolol Tartrate [Lopressor] 12.5 mg PO BID 12/21/17 04/21/22 Sacubitril/Valsartan [Entresto 24 1 tab PO BID 02/06/19 04/21/22 mg-26 mg Tablet] Aspirin EC [Ecotrin Low Dose] 81 mg PO DAILY 04/21/22 04/21/22 Atorvastatin [Lipitor] 40 mg PO HS 04/21/22 04/21/22 Clopidogrel [Plavix] 75 mg PO DAILY 04/21/22 04/21/22 Lipase/Protease/Amylase [Zenpep Dr 2 capsule PO TID 04/21/22 04/21/22 5,000 Unit Capsule] Pantoprazole [Protonix] 40 mg PO BID 04/21/22 04/21/22 Allergies/Adverse Reactions: Allergies Allergy/AdvReac Type Severity Reaction Status Date / Time No Known Allergies Allergy Verified 04/21/22 15:01 Review of Systems ROS Statement: Those systems with pertinent positive or pertinent negative responses have been documented in the HPI. ROS Other: All systems not noted in ROS Statement are negative. Constitutional: Denies: fever, chills Eyes: Denies: vision change Respiratory: Denies: cough, dyspnea Cardiovascular: Denies: chest pain, palpitations, syncope Gastrointestinal: Denies: abdominal pain, vomiting, diarrhea Genitourinary: Denies: dysuria, hematuria Musculoskeletal: Denies: back pain Neurological: Reports: as per HPI, weakness. Denies: headache, confusion Stroke MDM - Lab Data Result diagrams: 04/21/22 14:20 04/21/22 14:20 Lab Results 04/21/22 04/21/22 04/21/22 Range/Units 14:20 14:20 14:20 WBC 8.3 (3.8-10.6) k/uL RBC 4.28 (3.80-5.40) m/uL Hgb 15.8 (11.4-16.0) gm/dL Hct 44.6 (34.0-46.0) % MCV 104.2 H (80.0-100.0) fL MCH 36.9 H (25.0-35.0) pg MCHC 35.4 (31.0-37.0) g/dL RDW 11.9 (11.5-15.5) % Plt Count 210 (150-450) k/uL MPV 7.8 Neutrophils % 86 % Lymphocytes % 7 % Monocytes % 5 % Eosinophils % 1 % Basophils % 0 % Neutrophils # 7.1 (1.3-7.7) k/uL Lymphocytes # 0.5 L (1.0-4.8) k/uL Monocytes # 0.4 (0-1.0) k/uL Eosinophils # 0.1 (0-0.7) k/uL Basophils # 0.0 (0-0.2) k/uL Macrocytosis Slight PT 9.8 (9.0-12.0) sec INR 0.9 (<1.2) APTT 26.2 (22.0-30.0) sec Sodium 132 L (137-145) mmol/L Potassium 4.6 (3.5-5.1) mmol/L Chloride 99 (98-107) mmol/L Carbon Dioxide 25 (22-30) mmol/L Anion Gap 8 mmol/L BUN 19 H (7-17) mg/dL Creatinine 0.56 (0.52-1.04) mg/dL Est GFR (CKD-EPI)AfAm >90 (>60 ml/min/1.73 sqM) Est GFR (CKD-EPI)NonAf >90 (>60 ml/min/1.73 sqM) Glucose 79 (74-99) mg/dL POC Glucose (mg/dL) (70-110) mg/dL POC Glu Diesel Service Apprentice ID Calcium 8.7 (8.4-10.2) mg/dL Total Bilirubin 0.8 (0.2-1.3) mg/dL AST 63 H (14-36) U/L ALT 23 (4-34) U/L Alkaline Phosphatase 74 (38-126) U/L Troponin I (0.000-0.034) ng/mL Total Protein 7.3 (6.3-8.2) g/dL Albumin 4.0 (3.5-5.0) g/dL Serum Alcohol mg/dL 04/21/22 04/21/22 04/21/22 Range/Units 14:20 14:23 15:03 WBC (3.8-10.6) k/uL RBC (3.80-5.40) m/uL Hgb (11.4-16.0) gm/dL Hct (34.0-46.0) % MCV (80.0-100.0) fL MCH (25.0-35.0) pg MCHC (31.0-37.0) g/dL RDW (11.5-15.5) % Plt Count (150-450) k/uL MPV Neutrophils % % Lymphocytes % % Monocytes % % Eosinophils % % Basophils % % Neutrophils # (1.3-7.7) k/uL Lymphocytes # (1.0-4.8) k/uL Monocytes # (0-1.0) k/uL Eosinophils # (0-0.7) k/uL Basophils # (0-0.2) k/uL Macrocytosis PT (9.0-12.0) sec INR (<1.2) APTT (22.0-30.0) sec Sodium (137-145) mmol/L Potassium (3.5-5.1) mmol/L Chloride (98-107) mmol/L Carbon Dioxide (22-30) mmol/L Anion Gap mmol/L BUN (7-17) mg/dL Creatinine (0.52-1.04) mg/dL Est GFR (CKD-EPI)AfAm (>60 ml/min/1.73 sqM) Est GFR (CKD-EPI)NonAf (>60 ml/min/1.73 sqM) Glucose (74-99) mg/dL POC Glucose (mg/dL) 81 (70-110) mg/dL POC Glu Dies[employer] Service Apprentice ID Terrence Valderrama Calcium (8.4-10.2) mg/dL Total Bilirubin (0.2-1.3) mg/dL AST (14-36) U/L ALT (4-34) U/L Alkaline Phosphatase (38-126) U/L Troponin I 0.242 H* (0.000-0.034) ng/mL Total Protein (6.3-8.2) g/dL Albumin (3.5-5.0) g/dL Serum Alcohol <10 mg/dL - Medical Decision Making This patient is 66-year-old woman arriving with left sided hemiparesis and neglect. Workup as code stroke. After discussions with Dr. Malave, patient will be transferred to [place] to have interventional treatment. I did discuss this with the patient and family and they are in agreement.. - EKG Data -: EKG Interpreted by Me EKG shows normal: sinus rhythm, QRS complexes (Left anterior fascicular block) Rate: tachycardia (Rate 107 BPM) When compared to previous EKG there are: other (Marked T-wave inversions inferolaterally) Interpretation: other (Pulmonary disease pattern) Past Medical History Past Medical History: Atrial Fibrillation, COPD, CVA/TIA, Hypertension Additional Past Medical History / Comment(s): CVA involving the dominant left side with some residual deficits with writing. 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 History of Any Multi-Drug Resistant Organisms: None Reported Past Surgical History: Bowel Resection, Breast Surgery, Section, Tubal Ligation Additional Past Surgical History / Comment(s): 03/17/16 IN [facility], HAD 16 INCHES OF SMALL BOWEL REMOVED WITH ILEOSTOMY - OCTOBER 07, 2016 HAD REVERSAL SX DONE. RT ARM PICC LINE. BX RIGHT BREAST X 2(NEG). EGD. "SX TO REMOVE BLOOD CLOT FROM ARTERY RT SIDE OF BRAIN". PEG tube. Past Anesthesia/Blood Transfusion Reactions: No Reported Reaction Additional Past Anesthesia/Blood Transfusion Reaction / Comment(s): CLAUSTERPHOBIA Past Psychological History: No Psychological Hx Reported Additional Psychological History / Comment(s): . Past Alcohol Use History: Daily, Heavy Additional Past Alcohol Use History / Comment(s): SMOKES 1PPD, SMOKING FOR 45 YEARS, 1PPD. Drinks 2-4 glasses of wine per day. Past Drug Use History: Marijuana Additional Drug Use History / Comment(s): VAPES - Past Family History Mother Family Medical History: Cancer Father Additional Family Medical History / Comment(s): ENCEPHALITIS Course Vital Signs 04/21/22 04/21/22 04/21/22 13:28 13:35 14:18 Temperature 98.5 F Pulse Rate 102 H 105 H 102 H Respiratory 18 18 18 Rate Blood Pressure 136/87 149/83 149/83 O2 Sat by Pulse 97 96 96 Oximetry 04/21/22 15:40 Temperature Pulse Rate 102 H Respiratory 18 Rate Blood Pressure 145/81 O2 Sat by Pulse 96 Oximetry - Reevaluation(s) Reevaluation #1: 04/21/22 13:41 Patient is a 66-year-old woman brought here to have evaluation for suspected stroke. I went and performed initial history and physical. Patient does have left sided hemiparesis. The stroke team is activated, but suspect patient outside window for TPA given last known well at 8:30 AM. Reevaluation #2: 04/21/22 14:09 Case D/W Dr. Malave from stroke team Reevaluation #3: 04/21/22 14:[address] result with , who will advise further Critical Care Time Critical Care Time: Yes (40 minutes) Disposition Clinical Impression: Acute ischemic right MCA stroke Disposition: OTHER INSTITUTION NOT DEFINED Condition: Critical Is patient prescribed a controlled substance at d/c from ED?: No Referrals: Nadine Nicholas MD [Primary Care Provider] - 1-2 days - Out of Hospital Transfer - Req. Specs Out of Hospital Transfer - Requested Specifics: Neurological ICU (Roseline Gilbert)
[2022-04-21 13:39] VITALS: RESP 18; TEMP 98.5
--- NOTE | 2022-04-21 14:03 | CT ---
EXAMINATION TYPE: CT brain wo con for TPA DATE OF EXAM: 04/21/2022 HISTORY: Neuro deficits, acute, stroke suspected CT DLP: 1086.6 mGycm. Automated Exposure Control for Dose Reduction was Utilized. TECHNIQUE: CT scan of the head is performed without contrast. COMPARISON: None. FINDINGS: There is no acute intracranial hemorrhage or midline shift identified. There is mild to m oderate diffuse ventricular and sulcal prominence consistent with diffuse cerebral atrophy. There is [id number] low-attenuation in the periventricular white matter most likely consistent with chr onic small vessel ischemic change. Old infarct right inferior basal ganglia with right-sided volume loss is present. Nasal septum deviated to left of midline. The globes are intact and the visualized s inuses are clear. IMPRESSION: No acute intracranial hemorrhage or midline shift. There is [id number] diffuse ag e-related cerebral atrophy and probable chronic small vessel ischemic change along with old right-nicolás ed infarct all noted.
[2022-04-21 14:19] VITALS: PULSE 102
[2022-04-21 14:24] LABS: Glucose,Whole Blood 81 mg/dL (70-110)
[2022-04-21 14:27] LABS: Basophils % (A) 0 %; Eosinophils # (A) 0.1 k/uL (0-0.7); Eosinophils % (A) 1 %; HCT 44.6 % (34.0-46.0); HGB 15.8 gm/dL (11.4-16.0); Lymphocytes # (A) 0.5 k/uL (1.0-4.8); Lymphocytes % (A) 7 %; MCH 36.9 pg (25.0-35.0); MCHC 35.4 g/dL (31.0-37.0); MCV 104.2 fL (80.0-100.0); Macrocytosis Slight; Mean Platelet Volume 7.8; Monocytes # (A) 0.4 k/uL (0-1.0); Monocytes % (A) 5 %; Neutrophils # (A) 7.1 k/uL (1.3-7.7); Neutrophils % (A) 86 %; Platelet Count 210 k/uL (150-450); RBC 4.28 m/uL (3.80-5.40); RDW 11.9 % (11.5-15.5); WBC 8.3 k/uL (3.8-10.6)
--- NOTE | 2022-04-21 14:29 | CT ---
EXAMINATION TYPE: CT angio head neck DATE OF EXAM: 04/21/2022 HISTORY: Neuro deficits, RT gaze, hx CVA COMPARISON: None. CT DLP: 293.9 mGycm. Automated Exposure Control for Dose Reduction was Utilized. TECHNIQUE: CTA scan of the head and neck is performed with IV Contrast, patient injected with 65 mL of Isovue 370, axial images are obtained, coronal and sagittal reformatted images are reviewed. 3D re constructed images are created on an independent workstation and reviewed. FINDINGS: Carotid/Vascular Structures: [id number] peripheral mixed plaque in the aorta extends into branc h vessels . Mild peripheral plaque in the left subclavian artery. No significant stenosis in articula r and great vessels. Mild to moderate plaque distal common carotid arteries right greater than left. No significant stenosis. Moderate peripheral calcified plaque right carotid bulb. Mild noncalcified p laque left carotid bulb. No significant stenosis in either internal carotid artery. Areas of mild heaven rowing along course of the right common carotid artery are present. No significant stenosis in the ex ternal carotid arteries bilaterally. Patent vertebral arteries to be basilar junction. Vertebral alvaro darren are codominant. Patent bilateral posterior communicating arteries. No significant focal stenosis or aneurysm in the posterior circulation. Anterior circulation shows nonvisualization consistent wit h complete occlusion of the right middle cerebral artery. This correlates with hyperdense artery sign on noncontrast CT. Other: Moderate underlying emphysematous change visualized upper lungs. Grade 1 retrolisthesis of C5 on C6 with moderate disc space narrowing. 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 Critical results communicated to emergency room via telephone at time of dictation to community arts [facility] manager as o kvng physician was performing CODE BLUE. NASCET criteria was used in interpretation of this exam?
[2022-04-21 14:39] LABS: ALT 23 U/L (4-34); AST 63 U/L (14-36); African American GFR (CKD) >90 (>60 ml/min/1.73 sqM); Alkaline Phosphatase 74 U/L (38-126); Anion Gap 8 mmol/L; Blood Urea Nitrogen 19 mg/dL (7-17); Calcium 8.7 mg/dL (8.4-10.2); Carbon Dioxide 25 mmol/L (22-30); Chloride 99 mmol/L (98-107); Glucose 79 mg/dL (74-99); Non-African American GFR(CKD) >90 (>60 ml/min/1.73 sqM); Sodium 132 mmol/L (137-145); Total Bilirubin 0.8 mg/dL (0.2-1.3); Total Protein 7.3 g/dL (6.3-8.2)
[2022-04-21 14:40] LABS: INR 0.9 (<1.2); Partial Thromboplastin Time 26.2 sec (22.0-30.0); Prothrombin Time 9.8 sec (9.0-12.0)
[2022-04-21 14:45] LABS: Potassium 4.6 mmol/L (3.5-5.1)
--- NOTE | 2022-04-21 15:29 | XR ---
EXAMINATION TYPE: XR chest 1V portable DATE OF EXAM: 04/21/2022 COMPARISON: 11/22/2016 INDICATION: Acute mental status changes TECHNIQUE: Single frontal view of the chest is obtained. FINDINGS: The heart size is normal. The pulmonary vasculature is normal. The lungs are clear. There is hyperinflation flattening the diaphragms compatible with COPD IMPRESSION: 1. No acute pulmonary process. 2. COPD
[2022-04-21 15:43] VITALS: BP 145/81
== END 2022-04-21 15:43 | disposition other institution (70) ==
LOC: EC 13:27
DX: I63.311 Cerebral infarction due to thrombosis of right middle cerebral artery (principal); I48.91 Unspecified atrial fibrillation; J44.9 Chronic obstructive pulmonary disease, unspecified; I10 Essential (primary) hypertension; G45.9 Transient cerebral ischemic attack, unspecified; F12.90 Cannabis use, unspecified, uncomplicated; Z79.82 Long term (current) use of aspirin; Z79.899 Other long term (current) drug therapy; Z90.49 Acquired absence of other specified parts of digestive tract; Z87.891 Personal history of nicotine dependence; Z79.02 Long term (current) use of antithrombotics/antiplatelets
CPT/HCPCS: 36415; 93005; 80053; 84484; 85025; 85610; 85730; 71045; 70496; 70450; 70498; 99291; 96360; G0480; Q9967; 80320

== ENCOUNTER 2023-02-07 22:19 | Emergency (ER) | payer MEDICARE ==
[2023-02-07 22:28] VITALS: TEMP 97.8
--- NOTE | 2023-02-07 22:35 | ED ---
General Adult HPI - General Chief complaint: Fall Stated complaint: Fall Time Seen by Provider: 02/07/23 22:21 Source: patient, EMS Mode of arrival: EMS Limitations: no limitations - History of Present Illness Initial comments: Patient presents to the ED by ambulance for evaluation status post fall. Patient states that she fell while at home tonight, and she states that she is not exactly sure what caused her fall. Patient denies LOC. Patient admits to drinking "a bottle of wine" tonight, and she smells of alcohol. Patient states that she has had a prior stroke that has affected the left side of her body and face. Patient is currently only complaining of having left upper arm pain where she has sustained skin tears. Patient states that her tetanus is up-to-date. Patient denies any other injury or site of pain, head injury, headache, LOC, neck/back/lower extremity pain, chest pain, dyspnea, palpitations, dizziness, syncope, abdominal pain, nausea or vomiting, diarrhea, bloody or melanotic stool, dysuria or urinary symptoms, or any other symptoms or complaints. Patient was transported to the ED in a C-collar. Patient states that she is on Eliquis. - Related Data Home Medications Medication Instructions Recorded Confirmed Budesonide/Formoterol Fumarate 2 puff INHALATION RT-BID 11/19/16 04/21/22 [Symbicort 160-4.5 Mcg Inhaler] Metoprolol Tartrate [Lopressor] 12.5 mg PO BID 12/21/17 04/21/22 Sacubitril/Valsartan [Entresto 24 1 tab PO BID 02/06/19 04/21/22 mg-26 mg Tablet] Aspirin EC [Ecotrin Low Dose] 81 mg PO DAILY 04/21/22 04/21/22 Atorvastatin [Lipitor] 40 mg PO HS 04/21/22 04/21/22 Clopidogrel [Plavix] 75 mg PO DAILY 04/21/22 04/21/22 Lipase/Protease/Amylase [Zenpep Dr 2 capsule PO TID 04/21/22 04/21/22 5,000 Unit Capsule] Pantoprazole [Protonix] 40 mg PO BID 04/21/22 04/21/22 Allergies Allergy/AdvReac Type Severity Reaction Status Date / Time No Known Allergies Allergy Verified 02/07/23 22:26 Review of Systems ROS Statement: Those systems with pertinent positive or pertinent negative responses have been documented in the HPI. ROS Other: All systems not noted in ROS Statement are negative. 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 History of Any Multi-Drug Resistant Organisms: None Reported Past Surgical History: Bowel Resection, Breast Surgery, Section, Tubal Ligation Additional Past Surgical History / Comment(s): 03/17/16 IN [facility], HAD 16 INCHES OF SMALL BOWEL REMOVED WITH ILEOSTOMY - OCTOBER 07, 2016 HAD REVERSAL SX DONE. RT ARM PICC LINE. BX RIGHT BREAST X 2(NEG). EGD. "SX TO REMOVE BLOOD CLOT FROM ARTERY RT SIDE OF BRAIN". PEG tube. Past Anesthesia/Blood Transfusion Reactions: No Reported Reaction Additional Past Anesthesia/Blood Transfusion Reaction / Comment(s): CLAUSTERPHOBIA Past Psychological History: No Psychological Hx Reported Past Alcohol Use History: Daily, Heavy Past Drug Use History: Marijuana - Past Family History Mother Family Medical History: Cancer Father Additional Family Medical History / Comment(s): ENCEPHALITIS General Exam Limitations: no limitations General appearance: alert, other (Smells of alcohol) Head exam: Present: atraumatic, normocephalic Eye exam: Present: normal appearance, PERRL, EOMI ENT exam: Present: mucous membranes moist, TM's normal bilaterally Neck exam: Present: other (Trachea is in midline; c-collar is in place). Absent: tenderness Respiratory exam: Present: normal lung sounds bilaterally. Absent: respiratory distress, wheezes, rales, rhonchi, stridor, chest wall tenderness Cardiovascular Exam: Present: regular rate, normal rhythm, normal heart sounds, other (Normal radial and DP pulses bilaterally) GI/Abdominal exam: Present: soft. Absent: distended, tenderness, guarding Extremities exam: Present: other (Pelvis is stable and nontender; patient has full range of motion at bilateral hips; 2 moderate-sized skin tears are noted over the patient's left proximal arm with surrounding tenderness). Absent: pedal edema Back exam: Present: normal inspection. Absent: tenderness Neurological exam: Present: alert, oriented X3, other (Left lower facial droop (patient states that this is old from a prior stroke)) Skin exam: Present: warm, dry, normal color Course Vital Signs 02/07/23 22:21 Temperature 97.8 F Pulse Rate 54 L Respiratory 16 Rate Blood Pressure 151/82 O2 Sat by Pulse 97 Oximetry - Reevaluation(s) Reevaluation #1: 02/08/23 00:39 Patient remains alert and breathing comfortably. Patient is aware of her test results, and she feels comfortable being discharged home at this time. Patient was counseled about alcohol abuse, falls and skin tears. ED RN to clean and dr ess the patient's left upper extremity skin tears prior to discharge from the ED. Patient states that she will get a ride home from the ED tonight. Patient was instructed to refrain from any more alcohol drinking tonight. Patient was clearly explained return instructions. Patient was also instructed to follow up closely with her primary care provider. Patient feels comfortable with this plan. EKG Findings - EKG Comments: EKG Findings:: ED physician interpretation (interpreted by me): Normal sinus rhythm, ventricular rate of 66 bpm, no ectopy, normal SC and QRS intervals, normal QT interval, incomplete right bundle branch block, left anterior fascicular block, normal axis, no ST or T-wave abnormality Medical Decision Making - Medical Decision Making Was pt. sent in by a medical professional or institution (REEMA Valencia, STAFF OCCUPATIONAL THERAPIST, urgent care, hospital, or longterm...) When possible be specific @ -No Did you speak to anyone other than the patient for history (EMS, parent, family, police, friend...)? What history was obtained from this source @ -No Did you review nursing and triage notes (agree or disagree)? Why? @ -I reviewed and agree with nursing and triage notes Were old charts reviewed (outside hosp., previous admission, EMS record, old EKG, old radiological studies, urgent care reports/EKG's, longterm records)? Report findings @ -No old charts were reviewed Differential Diagnosis (chest pain, altered mental status, abdominal pain women, abdominal pain men, vaginal bleeding, weakness, fever, dyspnea, syncope, headache, dizziness, GI bleed, back pain, seizure, CVA, palpatations, mental health, musculoskeletal)? @ -Fall, head injury, cervical injury, sprain, strain, fracture, skin tear, contusion, alcohol abuse, electrolyte abnormality, dehydration, syncope, dysrhythmia, anemia, hypoglycemia, hyperglycemia EKG interpreted by me (3pts min.). @ -As above X-rays interpreted by me (1pt min.). @ -Patient's chest and left humerus x-rays were reviewed myself and are negative. I agree with the radiologist's interpretations as above. CT interpreted by me (1pt min.). @ -Patient's noncontrast CT head and cervical spine were reviewed myself and show no acute abnormality. I agree with the radiologist's interpretations as above. U/S interpreted by me (1pt. min.). @ -None done What testing was considered but not performed or refused? (CT, X-rays, U/S, labs)? Why? @ -None What meds were considered but not given or refused? Why? @ -None Did you discuss the management of the patient with other professionals (professionals i.e. , PA, STAFF OCCUPATIONAL THERAPIST, lab, RT, psych nurse, pediatric social worker, stock blender, teacher, infantry weapons officer, director of casework services)? Give summary @ -No Was smoking cessation discussed for >3mins.? @ -No Was critical care preformed (if so, how long)? @ -No Were there social determinants of health that impacted care today? How? (Homelessness, low income, unemployed, alcoholism, drug addiction, transp ortation, low edu. Level, literacy, decrease access to med. care, halfway, rehab)? @ -No Was there de-escalation of care discussed even if they declined (Discuss DNR or withdrawal of care, Hospice)? DNR status @ -No What co-morbidities impacted this encounter? (DM, HTN, Smoking, COPD, CAD, Cancer, CVA, ARF, Chemo, Hep., AIDS, mental health diagnosis, sleep apnea, morbid obesity)? @ -None Was patient admitted / discharged? Hospital course, mention meds given and route, prescriptions, significant lab abnormalities, going to OR and other pertinent info. @ -Patient's imaging studies show no acute abnormality. Patient's labs are fairly unremarkable other than an elevated alcohol level of 201. I do not suspect an emergent medical condition at this time. Will discharge patient home. Patient states that she will get a ride home from the ED tonight. Patient was instructed to refrain from any further alcohol consumption tonight. Patient feels comfortable with this plan. Undiagnosed new problem with uncertain prognosis? @ -No Drug Therapy requiring intensive monitoring for toxicity (Heparin, Nitro, I nsulin, Cardizem)? @ -No Were any procedures done? @ -No Diagnosis/symptom? @ -Alcohol abuse Acute, or Chronic, or Acute on Chronic? @ -Acute Uncomplicated (without systemic symptoms) or Complicated (systemic symptoms)? @ -default Side effects of treatment? @ -No Exacerbation, Progression, or Severe Exacerbation? @ -No Poses a threat to life or bodily function? How? (Chest pain, [place], PR, pneumonia, PE, COPD, DKA, ARF, appy, cholecystitis, CVA, Diverticulitis, Homicidal, Suicidal, threat to staff... and all critical care pts) @ -No Diagnosis/symptom? @ -Fall Acute, or Chronic, or Acute on Chronic? @ -Acute Uncomplicated (without systemic symptoms) or Complicated (systemic symptoms)? @ -default Side effects of treatment? @ -none Exacerbation, Progression, or Severe Exacerbation] @ -no Poses a threat to life or bodily function? @ -no Diagnosis/symptom? @ -Left arm skin tears Acute, or Chronic, or Acute on Chronic? @ -Acute Uncomplicated (without systemic symptoms) or Complicated (systemic symptoms)? @ -default Side effects of treatment? @ -none Exacerbation, Progression, or Severe Exacerbation] @ -no Poses a threat to life or bodily function? @ -no - Lab Data Result diagrams: 02/08/23 00:20 02/07/23 23:12 Lab Results 02/07/23 02/07/23 02/07/23 Range/Units 23:12 23:12 23:18 WBC (3.8-10.6) k/uL RBC (3.80-5.40) m/uL Hgb (11.4-16.0) gm/dL Hct (34.0-46.0) % MCV (80.0-100.0) fL MCH (25.0-35.0) pg MCHC (31.0-37.0) g/dL RDW (11.5-15.5) % Plt Count (150-450) k/uL MPV Neutrophils % % Lymphocytes % % Monocytes % % Eosinophils % % Basophils % % Neutrophils # (1.3-7.7) k/uL Lymphocytes # (1.0-4.8) k/uL Monocytes # (0-1.0) k/uL Eosinophils # (0-0.7) k/uL Basophils # (0-0.2) k/uL Macrocytosis PT 19.0 H (9.0-12.0) sec INR 1.9 H (<1.2) APTT 32.1 H (22.0-30.0) sec Sodium 137 (137-145) mmol/L Potassium 4.6 (3.5-5.1) mmol/L Chloride 104 (98-107) mmol/L Carbon Dioxide 20 L (22-30) mmol/L Anion Gap 13 mmol/L BUN 16 (7-17) mg/dL Creatinine 1.05 H (0.52-1.04) mg/dL Est GFR (CKD-EPI)AfAm 64 (>60 ml/min/1.73 sqM) Est GFR (CKD-EPI)NonAf 55 (>60 ml/min/1.73 sqM) Glucose 91 (74-99) mg/dL Calcium 9.4 (8.4-10.2) mg/dL Total Bilirubin 0.4 (0.2-1.3) mg/dL AST 25 (14-36) U/L ALT 11 (4-34) U/L Alkaline Phosphatase 57 (38-126) U/L Troponin I 0.016 (0.000-0.034) ng/mL Total Protein 7.0 (6.3-8.2) g/dL Albumin 3.8 (3.5-5.0) g/dL Serum Alcohol 201 H* mg/dL 02/08/23 Range/Units 00:20 WBC 5.4 (3.8-10.6) k/uL RBC 3.65 L (3.80-5.40) m/uL Hgb 12.5 (11.4-16.0) gm/dL Hct 37.6 (34.0-46.0) % MCV 103.1 H (80.0-100.0) fL MCH 34.1 (25.0-35.0) pg MCHC 33.1 (31.0-37.0) g/dL RDW 12.4 (11.5-15.5) % Plt Count 199 (150-450) k/uL MPV 8.9 Neutrophils % 62 % Lymphocytes % 30 % Monocytes % 3 % Eosinophils % 3 % Basophils % 0 % Neutrophils # 3.3 (1.3-7.7) k/uL Lymphocytes # 1.6 (1.0-4.8) k/uL Monocytes # 0.2 (0-1.0) k/uL Eosinophils # 0.2 (0-0.7) k/uL Basophils # 0.0 (0-0.2) k/uL Macrocytosis Slight PT (9.0-12.0) sec INR (<1.2) APTT (22.0-30.0) sec Sodium (137-145) mmol/L Potassium (3.5-5.1) mmol/L Chloride (98-107) mmol/L Carbon Dioxide (22-30) mmol/L Anion Gap mmol/L BUN (7-17) mg/dL Creatinine (0.52-1.04) mg/dL Est GFR (CKD-EPI)AfAm (>60 ml/min/1.73 sqM) Est GFR (CKD-EPI)NonAf (>60 ml/min/1.73 sqM) Glucose (74-99) mg/dL Calcium (8.4-10.2) mg/dL Total Bilirubin (0.2-1.3) mg/dL AST (14-36) U/L ALT (4-34) U/L Alkaline Phosphatase (38-126) U/L Troponin I (0.000-0.034) ng/mL Total Protein (6.3-8.2) g/dL Albumin (3.5-5.0) g/dL Serum Alcohol mg/dL - Radiology Data Chest x-ray: No acute findings in the chest. Left humerus x-rays: Normal left humerus x-rays. Noncontrast CT head: 1. No acute intracranial process. 2. Large late subacute/chronic right MCA territory infarct. Noncontrast CT cervical spine: 1. No acute osseous findings. Disposition Clinical Impression: Fall, Skin tear of left upper extremity, Alcohol abuse Disposition: HOME SELF-CARE Condition: Stable Instructions (If sedation given, give patient instructions): Fall Prevention (ED), Skin Tear (ED), Abuse of Alcohol (ED) Additional Instructions: Return to the ER immediately should you develop new or worsening pain or symptoms. Follow up closely with your primary care provider. Is patient prescribed a controlled substance at d/c from ED?: No Referrals: Nadine Nicholas MD [Primary Care Provider] - 1-2 days Time of Disposition: 00:49
[2023-02-07] MEDS ORDERED: SODIUM CHLORIDE 0.9% 500 ML 500 ML IV ONE (22:38)
[2023-02-07 23:46] LABS: ALT 11 U/L (4-34); African American GFR (CKD) 64 (>60 ml/min/1.73 sqM); Albumin 3.8 g/dL (3.5-5.0); Anion Gap 13 mmol/L; Blood Urea Nitrogen 16 mg/dL (7-17); Calcium 9.4 mg/dL (8.4-10.2); Carbon Dioxide 20 mmol/L (22-30); Chloride 104 mmol/L (98-107); Glucose 91 mg/dL (74-99); Non-African American GFR(CKD) 55 (>60 ml/min/1.73 sqM); Sodium 137 mmol/L (137-145); Total Bilirubin 0.4 mg/dL (0.2-1.3)
[2023-02-07 23:47] LABS: INR 1.9 (<1.2); Partial Thromboplastin Time 32.1 sec (22.0-30.0)
--- NOTE | 2023-02-08 00:06 | CT ---
EXAM: CT Head Without Intravenous Contrast CLINICAL HISTORY: ITS.REASON CT Reason: fall TECHNIQUE: Axial computed tomography images of the head/brain without intravenous contrast. CTDI is 45.3 mGy and DLP is 1043 mGy-cm. This CT exam was performed using one or more of the following dose reduction techniques: automated exposure control, adjustment of the mA and/or kV according to patient size, and/or use of iterative reconstruction technique. COMPARISON: No relevant prior studies available. FINDINGS: Brain: Late subacute/chronic right MCA territory infarct involving the frontal, temporal, and parietal lobes. Ramos-white matter differentiation otherwise maintained. Chronic small vessel ischemic changes in the periventricular deep cerebral white matter. Generalized parenchymal volume loss. No acute intracranial hemorrhage or mass-effect. Ventricles: Ex vacuo enlargement of the right lateral ventricle. No hydrocephalus. Bones/joints: Unremarkable. No acute fracture. Soft tissues: Unremarkable. Vasculature: Intracranial atherosclerosis. Sinuses: Unremarkable as visualized. No acute sinusitis. Mastoid air cells: Unremarkable as visualized. No mastoid effusion. Orbits: Bilateral lens replacement. IMPRESSION: 1. No acute intracranial process. 2. Large late subacute/chronic right MCA territory infarct. EXAM: CT Cervical Spine Without Intravenous Contrast CLINICAL HISTORY: ITS.REASON CT Reason: fall TECHNIQUE: Axial computed tomography images of the cervical spine without intravenous contrast. CTDI is 7.3 mGy and DLP is 212.2 mGy-cm. This CT exam was performed using one or more of the following dose reduction techniques: automated exposure control, adjustment of the mA and/or kV according to patient size, and/or use of iterative reconstruction technique. COMPARISON: No relevant prior studies available. FINDINGS: Vertebral body height and alignment are maintained. There is no acute fracture or traumatic subluxation. There is mild disc and uncovertebral joint degeneration at C4-C5 and C5- C6. There is multilevel right greater than left facet degeneration. Disc-osteophyte complex produces mild central spinal canal stenosis at the C4-C5 and C5-C6 levels. There is mild to moderate bilateral foraminal narrowing at C5-C6. There is no prevertebral soft tissue swelling. Lung apices demonstrate emphysema. IMPRESSION: No acute osseous findings.
[2023-02-08 00:08] LABS: AST 25 U/L (14-36); Alcohol 201 mg/dL; Alkaline Phosphatase 57 U/L (38-126); Potassium 4.6 mmol/L (3.5-5.1)
--- NOTE | 2023-02-08 00:18 | XR ---
EXAM: XR Chest, 1 View CLINICAL HISTORY: ITS.REASON XR Reason: fall TECHNIQUE: Frontal view of the chest. COMPARISON: No relevant prior studies available. FINDINGS: Lungs: Emphysema and chronic obstructive pulmonary disease. No consolidation. Pleural space: Unremarkable. No pleural effusion or pneumothorax. Heart: Unremarkable. No cardiomegaly or pulmonary vascular congestion. Bones/joints: No acute fracture. No dislocation. IMPRESSION: No acute findings in the chest.
--- NOTE | 2023-02-08 00:19 | XR ---
EXAM: XR Left Humerus, 2 or More Views CLINICAL HISTORY: ITS.REASON XR Reason: fall, left arm injury TECHNIQUE: Frontal and lateral views of the left humerus. COMPARISON: No relevant prior studies available. FINDINGS: Bones/joints: No acute fracture. No dislocation. Soft tissues: Unremarkable. IMPRESSION: Normal left humerus x-rays.
[2023-02-08 00:37] LABS: Basophils % (A) 0 %; Eosinophils # (A) 0.2 k/uL (0-0.7); Eosinophils % (A) 3 %; HCT 37.6 % (34.0-46.0); HGB 12.5 gm/dL (11.4-16.0); Lymphocytes # (A) 1.6 k/uL (1.0-4.8); Lymphocytes % (A) 30 %; MCH 34.1 pg (25.0-35.0); MCHC 33.1 g/dL (31.0-37.0); MCV 103.1 fL (80.0-100.0); Macrocytosis Slight; Mean Platelet Volume 8.9; Monocytes # (A) 0.2 k/uL (0-1.0); Monocytes % (A) 3 %; Neutrophils # (A) 3.3 k/uL (1.3-7.7); Neutrophils % (A) 62 %; Platelet Count 199 k/uL (150-450); RBC 3.65 m/uL (3.80-5.40); RDW 12.4 % (11.5-15.5); WBC 5.4 k/uL (3.8-10.6)
[2023-02-08 08:32] VITALS: BP 150/90; PULSE 68; RESP 16
== END 2023-02-08 08:29 | disposition home or self-care (01) ==
LOC: EC 22:19
DX: S41.112A Laceration without foreign body of left upper arm, initial encounter (principal); F10.10 Alcohol abuse, uncomplicated; I48.91 Unspecified atrial fibrillation; J44.9 Chronic obstructive pulmonary disease, unspecified; I10 Essential (primary) hypertension; F12.90 Cannabis use, unspecified, uncomplicated; Z86.73 Personal history of transient ischemic attack (TIA), and cerebral infarction without residual deficits; Y90.7 Blood alcohol level of 200-239 mg/100 ml; Z79.899 Other long term (current) drug therapy; Z79.51 Long term (current) use of inhaled steroids; Z79.82 Long term (current) use of aspirin; Z79.01 Long term (current) use of anticoagulants; W19.XXXA Unspecified fall, initial encounter
CPT/HCPCS: 36415; 80053; 84484; 85025; 85610; 85730; 73060; 71045; 72125; 70450; 99285; 96360; 96361; G0480; 80320

== ENCOUNTER 2023-05-21 17:25 | Emergency (ER) | payer MEDICARE ==
[2023-05-21] MEDS ORDERED: SODIUM CHLORIDE 0.9% 1,000 ML IV STA (18:08)
[2023-05-21 18:57] LABS: Basophils % (A) 0 %; Eosinophils # (A) 0.1 k/uL (0-0.7); Eosinophils % (A) 2 %; HCT 40.6 % (34.0-46.0); HGB 13.8 gm/dL (11.4-16.0); Lymphocytes # (A) 1.2 k/uL (1.0-4.8); Lymphocytes % (A) 14 %; MCHC 33.9 g/dL (31.0-37.0); MCV 100.4 fL (80.0-100.0); Mean Platelet Volume 7.5; Monocytes # (A) 0.4 k/uL (0-1.0); Monocytes % (A) 4 %; Neutrophils # (A) 6.4 k/uL (1.3-7.7); Neutrophils % (A) 77 %; Platelet Count 237 k/uL (150-450); RBC 4.05 m/uL (3.80-5.40); RDW 11.4 % (11.5-15.5); WBC 8.2 k/uL (3.8-10.6)
[2023-05-21 19:03] LABS: Amorphous Sediment,Urine Rare /hpf; Appearance,Urine Clear (Clear); Bacteria,Urine Occasional /hpf; Bilirubin,Urine Negative (Negative); Blood,Urine Trace (Negative); Color,Urine Colorless; Glucose,Urine (UA) 4+ (Negative); Ketones,Urine Negative (Negative); Leukocyte Esterase,Urine Negative (Negative); Nitrite,Urine Negative (Negative); PH, Urine 6.5 (5.0-8.0); Protein,Urine Negative (Negative); RBC,Urine 1 /hpf (0-5); Specific Gravity,Urine 1.004 (1.001-1.035); Squamous Epithelial Cell,Urine <1 /hpf (0-4); Urobilinogen,Urine <2.0 mg/dL (<2.0); WBC,Urine 2 /hpf (0-5)
[2023-05-21 19:06] LABS: ALT 18 U/L (4-34); AST 29 U/L (14-36); African American GFR (CKD) 78 (>60 ml/min/1.73 sqM); Alkaline Phosphatase 85 U/L (38-126); Anion Gap 11 mmol/L; Blood Urea Nitrogen 16 mg/dL (7-17); Calcium 9.2 mg/dL (8.4-10.2); Carbon Dioxide 26 mmol/L (22-30); Chloride 100 mmol/L (98-107); Glucose 111 mg/dL (74-99); Magnesium 1.9 mg/dL (1.6-2.3); Non-African American GFR(CKD) 67 (>60 ml/min/1.73 sqM); Phosphorus 3.1 mg/dL (2.5-4.5); Potassium 3.2 mmol/L (3.5-5.1); Sodium 137 mmol/L (137-145); Total Bilirubin 0.4 mg/dL (0.2-1.3); Total Protein 6.9 g/dL (6.3-8.2)
--- NOTE | 2023-05-21 19:07 | ED ---
Weakness HPI - General Chief complaint: Weakness Stated complaint: Seizure Time Seen by Provider: 05/21/23 18:08 Source: EMS, RN notes reviewed, old records reviewed, Caregiver Mode of arrival: EMS Limitations: no limitations - History of Present Illness Initial comments: This is a 67-year-old female in [facility] department for evaluation. Patient presents today for evaluation regards to severe weakness with a near syncopal versus seizure-like activity prior to arrival. Patient is brought to ER upon evaluation. Patient states she does feel weak here in the emergency department as a significant strong neurologic history including seizure and CVA with brain bleed. Doesn't does believe she has also had a seizure in the past but she is not on seizure medication MD Complaint: generalized weakness, lack of energy, difficulty walking -: minutes(s) Location: generalized Severity: moderate Quality: numbness Consistency: constant Improves with: none Worsens with: none Context: recent illness, history of similar Associated Symptoms: denies other symptoms - Related Data Home Medications Medication Instructions Recorded Confirmed Budesonide/Formoterol Fumarate 2 puff INHALATION RT-BID 11/19/16 04/21/22 [Symbicort 160-4.5 Mcg Inhaler] Metoprolol Tartrate [Lopressor] 12.5 mg PO BID 12/21/17 04/21/22 Sacubitril/Valsartan [Entresto 24 1 tab PO BID 02/06/19 04/21/22 mg-26 mg Tablet] Aspirin EC [Ecotrin Low Dose] 81 mg PO DAILY 04/21/22 04/21/22 Atorvastatin [Lipitor] 40 mg PO HS 04/21/22 04/21/22 Clopidogrel [Plavix] 75 mg PO DAILY 04/21/22 04/21/22 Lipase/Protease/Amylase [Zenpep Dr 2 capsule PO TID 04/21/22 04/21/22 5,000 Unit Capsule] Pantoprazole [Protonix] 40 mg PO BID 04/21/22 04/21/22 Allergies Allergy/AdvReac Type Severity Reaction Status Date / Time No Known Allergies Allergy Verified 02/07/23 22:26 Review of Systems ROS Statement: Those systems with pertinent positive or pertinent negative responses have been documented in the HPI. ROS Other: All systems not noted in ROS Statement are negative. 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 History of Any Multi-Drug Resistant Organisms: None Reported Past Surgical History: Bowel Resection, Breast Surgery, Section, Tubal Ligation Additional Past Surgical History / Comment(s): 03/17/16 IN [place], HAD 16 INCHES OF SMALL BOWEL REMOVED WITH ILEOSTOMY - OCTOBER 07, 2016 HAD REVERSAL SX DONE. RT ARM PICC LINE. BX RIGHT BREAST X 2(NEG). EGD. "SX TO REMOVE BLOOD CLOT FROM ARTERY RT SIDE OF BRAIN". PEG tube. Past Anesthesia/Blood Transfusion Reactions: No Reported Reaction Additional Past Anesthesia/Blood Transfusion Reaction / Comment(s): CLAUSTERPHOBIA Past Psychological History: No Psychological Hx Reported Past Alcohol Use History: Daily, Heavy Past Drug Use History: Marijuana - Past Family History Mother Family Medical History: Cancer Father Additional Family Medical History / Comment(s): ENCEPHALITIS General Exam General appearance: alert, in no apparent distress Head exam: Present: atraumatic, normocephalic, normal inspection Eye exam: Present: normal appearance, PERRL, EOMI. Absent: scleral icterus, conjunctival injection, periorbital swelling ENT exam: Present: normal exam, mucous membranes moist Neck exam: Present: normal inspection. Absent: tenderness, meningismus, lymphadenopathy Respiratory exam: Present: normal lung sounds bilaterally. Absent: respiratory distress, wheezes, rales, rhonchi, stridor Cardiovascular Exam: Present: regular rate, normal rhythm, normal heart sounds. Absent: systolic murmur, diastolic murmur, rubs, gallop, clicks GI/Abdominal exam: Present: soft, normal bowel sounds. Absent: distended, tenderness, guarding, rebound, rigid Extremities exam: Present: normal inspection, full ROM, normal capillary refill. Absent: tenderness, pedal edema, joint swelling, calf tenderness Back exam: Present: normal inspection Neurological exam: Present: alert, oriented X3, CN II-XII intact Psychiatric exam: Present: normal affect, normal mood Skin exam: Present: warm, dry, intact, normal color. Absent: rash Course Vital Signs 05/21/23 05/21/2323 18:02 18:30 18:45 Temperature Pulse Rate 84 88 88 Respiratory 18 13 13 Rate Blood Pressure 198/108 163/115 186/118 O2 Sat by Pulse 95 91 L 97 Oximetry 05/21/23 05/21/23 05/21/23 19:00 20:00 21:30 Temperature Pulse Rate 88 68 89 Respiratory 14 15 15 Rate Blood Pressure 165/114 175/117 180/120 O2 Sat by Pulse 97 94 L 97 Oximetry 05/21/23 05/21/23 05/21/23 22:15 22:22 22:30 Temperature 97.9 F Pulse Rate 77 79 Respiratory 14 14 Rate Blood Pressure 176/123 149/101 O2 Sat by Pulse 97 95 Oximetry - Reevaluation(s) Reevaluation #1: 05/21/23 21:46 Record is reviewed Reevaluation #2: 05/21/23 21:46 Patient symptoms are unchanged Reevaluation #3: 05/21/23 21:46 Informed results and questions answered Reevaluation #4: 05/21/23 21:46 Was pt. sent in by a medical professional or institution (, PA, [facility], urgent care, hospital, or retirement...) When possible be specific @ -no Did you speak to anyone other than the patient for history (EMS, parent, family, police, friend...)? What history was obtained from this source @ -no Did you review nursing and triage notes (agree or disagree)? Why? @ -agree Are old charts reviewed (outside hosp., previous admission, EMS record, old EKG, old radiological studies, urgent care reports/EKG's, retirement records)? Report findings @ -yes Differential Diagnosis (chest pain, altered mental status, abdominal pain women, abdominal pain men, vaginal bleeding, weakness, fever, dyspnea, syncope, headache, dizziness, GI bleed, back pain, seizure, CVA, palpatations, mental health, musculoskeletal)? @ -prior EKG interpreted by me (3pts min.). @ -yes X-rays interpreted by me (1pt min.). @ -yes negative for acute disease CT interpreted by me (1pt min.). @ -Yes negative for acute disease U/S interpreted by me (1pt. min.). @ -no What testing was considered but not performed or refused? (CT, X-rays, U/S, labs)? Why? @ -none What meds were considered but not given or refused? Why? @ -none Did you discuss the management of the patient with other professionals (luis angel bland i.e. , PA, [facility], lab, RT, psych nurse, social media campaign manager, mrb engineer, teacher, chief digital media officer, case packer and sealer)? Give summary @ -no Was smoking cessation discussed for >3mins.? @ -no Was critical care preformed (if so, how long)? @ -no Were there social determinants of health that impacted care today? How? (Homelessness, low income, unemployed, alcoholism, drug addiction, transportation, low edu. Level, literacy, decrease access to med. care, usp, rehab)? @ -none Was there de-escalation of care discussed even if they declined (Discuss DNR or withdrawal of care, Hospice)? DNR status @ -no What co-morbidities impacted this encounter? (DM, HTN, Smoking, COPD, CAD, Cancer, CVA, ARF, Chemo, Hep., AIDS, mental health diagnosis, sleep apnea, morbid obesity)? @ -none Was patient admitted / discharged? Hospital course, mention meds given and route, prescriptions, significant lab abnormalities, going to OR and other pertinent info. @ - 67 female to the emergency department for severe dehydration and alcoholism. Patient did have a syncopal event versus possible seizure but otherwise no acute findings here in the ER patient does not want further admission or observation here regarding syncopal event will be discharged home Discharge Undiagnosed new problem with uncertain prognosis? @ -no Drug Therapy requiring intensive monitoring for toxicity (Heparin, Nitro, Insulin, Cardizem)? @ -no Were any procedures done? @ -no Diagnosis/symptom? @ -Syncope Acute, or Chronic, or Acute on Chronic? @ -Acute Uncomplicated (without systemic symptoms) or Complicated (systemic symptoms)? @ -Complicated Side effects of treatment? @ -no Exacerbation, Progression, or Severe Exacerbation? @ -exacerbation Poses a threat to life or bodily function? How? (Chest pain, USA, ME, pneumonia, PE, COPD, DKA, ARF, appy, cholecystitis, CVA, Diverticulitis, Homicidal, Suicidal, threat to staff... and all critical care pts) @ -yes with cause of syncope Reevaluation #5: 05/21/23 21:46 Differential Syncope: Valvular disease, hypertrophic cardiomyopathy, pulmonary embolism, tamponade, tachycardia, bradycardia, ME, hypovolemia, hemorrhage, dissection, anemia, intracranial hemorrhage, seizure, hypoglycemia, carbon monoxide poisoning, this is not meant to be an all-inclusive list.02/13 21:46 EKG Findings - EKG Comments: EKG Findings:: EKG is sinus bradycardia 52 WV 127 QRS 105 QTc 452 - EKG Results: EKG: interpreted by TRUNG Medical Decision Making - Medical Decision Making 67 female to the emergency department for severe dehydration and alcoholism. Patient did have a syncopal event versus possible seizure but otherwise no acute findings here in the ER patient does not want further admission or observation here regarding syncopal event will be discharged home - Lab Data Result diagrams: 05/21/23 18:40 05/21/23 18:40 Lab Results 05/21/23 05/21/23 05/21/23 Range/Units 18:40 18:40 18:40 WBC 8.2 (3.8-10.6) k/uL RBC 4.05 (3.80-5.40) m/uL Hgb 13.8 (11.4-16.0) gm/dL Hct 40.6 (34.0-46.0) % MCV 100.4 H (80.0-100.0) fL MCH 34.0 (25.0-35.0) pg MCHC 33.9 (31.0-37.0) g/dL RDW 11.4 L (11.5-15.5) % Plt Count 237 (150-450) k/uL MPV 7.5 Neutrophils % 77 % Lymphocytes % 14 % Monocytes % 4 % Eosinophils % 2 % Basophils % 0 % Neutrophils # 6.4 (1.3-7.7) k/uL Lymphocytes # 1.2 (1.0-4.8) k/uL Monocytes # 0.4 (0-1.0) k/uL Eosinophils # 0.1 (0-0.7) k/uL Basophils # 0.0 (0-0.2) k/uL PT 11.3 (10.0-12.5) sec INR 1.0 (<1.2) APTT 24.9 (22.0-30.0) sec D-Dimer 3.46 H (<0.60) mg/L FEU Sodium (137-145) mmol/L Potassium (3.5-5.1) mmol/L Chloride (98-107) mmol/L Carbon Dioxide (22-30) mmol/L Anion Gap mmol/L BUN (7-17) mg/dL Creatinine (0.52-1.04) mg/dL Est GFR (CKD-EPI)AfAm (>60 ml/min/1.73 sqM) Est GFR (CKD-EPI)NonAf (>60 ml/min/1.73 sqM) Glucose (74-99) mg/dL Lactic Ac Sepsis Rflx Plasma Lactic Acid Gallito (0.7-2.0) mmol/L Calcium (8.4-10.2) mg/dL Phosphorus (2.5-4.5) mg/dL Magnesium (1.6-2.3) mg/dL Total Bilirubin (0.2-1.3) mg/dL AST (14-36) U/L ALT (4-34) U/L Alkaline Phosphatase (38-126) U/L Troponin I (0.000-0.034) ng/mL NT-Pro-B Natriuret Pep pg/mL Total Protein (6.3-8.2) g/dL Albumin (3.5-5.0) g/dL Urine Color Colorless Urine Appearance Clear (Clear) Urine pH 6.5 (5.0-8.0) Ur Specific [place] 1.004 (1.001-1.035) Urine Protein Negative (Negative) Urine Glucose (UA) 4+ H (Negative) Urine Ketones Negative (Negative) Urine Blood Trace H (Negative) Urine Nitrite Negative (Negative) Urine Bilirubin Negative (Negative) Urine Urobilinogen <2.0 (<2.0) mg/dL Ur Leukocyte Esterase Negative (Negative) Urine RBC 1 (0-5) /hpf Urine WBC 2 (0-5) /hpf Ur Squamous Epith Cells <1 (0-4) /hpf Amorphous Sediment Rare H (None) /hpf Urine Bacteria Occasional H (None) /hpf 05/21/23 05/21/23 05/21/23 Range/Units 18:40 18:40 18:40 WBC (3.8-10.6) k/uL RBC (3.80-5.40) m/uL Hgb (11.4-16.0) gm/dL Hct (34.0-46.0) % MCV (80.0-100.0) fL MCH (25.0-35.0) pg MCHC (31.0-37.0) g/dL RDW (11.5-15.5) % Plt Count (150-450) k/uL MPV Neutrophils % % Lymphocytes % % Monocytes % % Eosinophils % % Basophils % % Neutrophils # (1.3-7.7) k/uL Lymphocytes # (1.0-4.8) k/uL Monocytes # (0-1.0) k/uL Eosinophils # (0-0.7) k/uL Basophils # (0-0.2) k/uL PT (10.0-12.5) sec INR (<1.2) APTT (22.0-30.0) sec D-Dimer (<0.60) mg/L FEU Sodium 137 (137-145) mmol/L Potassium 3.2 L (3.5-5.1) mmol/L Chloride 100 (98-107) mmol/L Carbon Dioxide 26 (22-30) mmol/L Anion Gap 11 mmol/L BUN 16 (7-17) mg/dL Creatinine 0.89 (0.52-1.04) mg/dL Est GFR (CKD-EPI)AfAm 78 (>60 ml/min/1.73 sqM) Est GFR (CKD-EPI)NonAf 67 (>60 ml/min/1.73 sqM) Glucose 111 H (74-99) mg/dL Lactic Ac Sepsis Rflx Plasma Lactic Acid [place] 2.3 H* (0.7-2.0) mmol/L Calcium 9.2 (8.4-10.2) mg/dL Phosphorus 3.1 (2.5-4.5) mg/dL Magnesium 1.9 (1.6-2.3) mg/dL Total Bilirubin 0.4 (0.2-1.3) mg/dL AST 29 (14-36) U/L ALT 18 (4-34) U/L Alkaline Phosphatase 85 (38-126) U/L Troponin I <0.012 (0.000-0.034) ng/mL NT-Pro-B Natriuret Pep 1130 pg/mL Total Protein 6.9 (6.3-8.2) g/dL Albumin 4.0 (3.5-5.0) g/dL Urine Color Urine Appearance (Clear) Urine pH (5.0-8.0) Ur Specific [place] (1.001-1.035) Urine Protein (Negative) Urine Glucose (UA) (Negative) Urine Ketones (Negative) Urine Blood (Negative) Urine Nitrite (Negative) Urine Bilirubin (Negative) Urine Urobilinogen (<2.0) mg/dL Ur Leukocyte Esterase (Negative) Urine RBC (0-5) /hpf Urine WBC (0-5) /hpf Ur Squamous Epith Cells (0-4) /hpf Amorphous Sediment (None) /hpf Urine Bacteria (None) /hpf 05/21/23 05/21/23 Range/Units 19:08 21:08 WBC (3.8-10.6) k/uL RBC (3.80-5.40) m/uL Hgb (11.4-16.0) gm/dL Hct (34.0-46.0) % MCV (80.0-100.0) fL MCH (25.0-35.0) pg MCHC (31.0-37.0) g/dL RDW (11.5-15.5) % Plt Count (150-450) k/uL MPV Neutrophils % % Lymphocytes % % Monocytes % % Eosinophils % % Basophils % % Neutrophils # (1.3-7.7) k/uL Lymphocytes # (1.0-4.8) k/uL Monocytes # (0-1.0) k/uL Eosinophils # (0-0.7) k/uL Basophils # (0-0.2) k/uL PT (10.0-12.5) sec INR (<1.2) APTT (22.0-30.0) sec D-Dimer (<0.60) mg/L FEU Sodium (137-145) mmol/L Potassium (3.5-5.1) mmol/L Chloride (98-107) mmol/L Carbon Dioxide (22-30) mmol/L Anion Gap mmol/L BUN (7-17) mg/dL Creatinine (0.52-1.04) mg/dL Est GFR (CKD-EPI)AfAm (>60 ml/min/1.73 sqM) Est GFR (CKD-EPI)NonAf (>60 ml/min/1.73 sqM) Glucose (74-99) mg/dL Lactic Ac Sepsis Rflx Y Plasma Lactic Acid [place] 1.3 (0.7-2.0) mmol/L Calcium (8.4-10.2) mg/dL Phosphorus (2.5-4.5) mg/dL Magnesium (1.6-2.3) mg/dL Total Bilirubin (0.2-1.3) mg/dL AST (14-36) U/L ALT (4-34) U/L Alkaline Phosphatase (38-126) U/L Troponin I (0.000-0.034) ng/mL NT-Pro-B Natriuret Pep pg/mL Total Protein (6.3-8.2) g/dL Albumin (3.5-5.0) g/dL Urine Color Urine Appearance (Clear) Urine pH (5.0-8.0) Ur Specific [place] (1.001-1.035) Urine Protein (Negative) Urine Glucose (UA) (Negative) Urine Ketones (Negative) Urine Blood (Negative) Urine Nitrite (Negative) Urine Bilirubin (Negative) Urine Urobilinogen (<2.0) mg/dL Ur Leukocyte Esterase (Negative) Urine RBC (0-5) /hpf Urine WBC (0-5) /hpf Ur Squamous Epith Cells (0-4) /hpf Amorphous Sediment (None) /hpf Urine Bacteria (None) /hpf - EKG Data -: EKG Interpreted by Wy - Radiology Data Radiology results: report reviewed (Chest x-ray CT brain CT angios of chest is negative for acute disease), image reviewed Disposition Clinical Impression: Dehydration, Syncope, ETOH abuse Narrative: Syncope V Seizure Disposition: ADMITTED IP TO THIS HOSP Condition: Fair Instructions (If sedation given, give patient instructions): Syncope (ED) Is patient prescribed a controlled substance at d/c from ED?: No Referrals: None,Stated [Primary Care Provider] - 1-2 days Time of Disposition: 21:45
[2023-05-21 19:15] LABS: NT-Pro-B-Type Natriuretic Pept 1130 pg/mL
[2023-05-21] MEDS ORDERED: LORazepam 2 MG/ML INJ IV STA (19:24)
--- NOTE | 2023-05-21 19:29 | XR ---
EXAMINATION TYPE: XR chest 1V DATE OF EXAM: 05/21/2023 7:11 PM CLINICAL INDICATION:Female, 67 years old with history of ams; COMPARISON: Chest radiographs from 01/28/2023 TECHNIQUE: XR chest 1V Frontal view of the chest. FINDINGS: Lungs/Pleura: There is flattening of the diaphragm with increased lucency of the lungs. No evidence o f pneumothorax, pleural effusion or focal consolidation. Pulmonary vascularity: Unremarkable. Heart/mediastinum: Cardiomediastinal silhouette is unremarkable. Musculoskeletal: No acute osseous pathology. IMPRESSION: 1. No acute cardiopulmonary disease process. 2. COPD changes.
[2023-05-21 19:38] LABS: Partial Thromboplastin Time 24.9 sec (22.0-30.0); Prothrombin Time 11.3 sec (10.0-12.5)
--- NOTE | 2023-05-21 21:21 | CT ---
EXAMINATION TYPE: CT brain wo con CT DLP: Combined DLP of 1356 mGycm, Automated exposure control for dose reduction was used. DATE OF EXAM: 05/21/2023 8:58 PM COMPARISON: 02/07/2023. CLINICAL INDICATION:Female, 67 years old with history of ams, AMS. Weakness. TECHNIQUE: Brain: Axial CT images of the brain were obtained with coronal and sagittal reformats created and rev iewed. Contrast used: None. Oral contrast used: None. FINDINGS: Brain: Extra-axial spaces: No abnormal extra-axial fluid collections. Ventricular system: Within normal limits Cerebral parenchyma: Encephalomalacia the right MCA territory or in the right temporal, frontal and p arietal regions. No acute intraparenchymal hemorrhage or mass effect. The remainder of the bravo-whit e junctions are well differentiated. Cerebellum: Unremarkable. Mass effect: No evidence of midline shift. Intracranial vasculature: Atherosclerotic calcifications of the intracranial vessels. Soft tissues: Normal. Calvarium/osseous structures: No depressed skull fracture. Paranasal sinuses and mastoid air cells: Mild scattered paranasal sinus disease. Visualized orbits: Orbital contents are intact. IMPRESSION: 1. No acute intracranial process. 2. Remote right MCA territory infarct within the encephalomalacia.
--- NOTE | 2023-05-21 21:31 | CT ---
EXAMINATION TYPE: CT angio chest CT DLP: Combined DLP of 1356 mGycm, Automated exposure control for dose reduction was used. DATE OF EXAM: 05/21/2023 8:58 PM COMPARISON: 11/19/2016. CLINICAL INDICATION:Female, 67 years old with history of PE; Elevated D-dimer. R/O PE. TECHNIQUE/CONTRAST: CTA scan of the thorax is performed with IV Contrast, patient injected with 100 ml mL of Isovue 370, MIP images are created and reviewed these are created on a separate workstation.. FINDINGS: Pulmonary Artery: There is no evidence for a filling defect within the pulmonary vasculature to sugge st acute pulmonary embolism. The pulmonary artery is of normal size. Lungs/Pleura: Right lower lung 10 mm groundglass opacity. Bibasilar streaky atelectasis/scarring. Mod erate to severe emphysema changes. No evidence of focal consolidation, pleural effusion or pneumothor ax. Airway: Secretions are layering along the wall of the trachea. Heart: Heart is within normal limits for size. Vasculature: No evidence for intramural hematoma on noncontrast imaging. No evidence of intimal flap to suggest dissection. No aneurysm identified. Scattered atherosclerotic disease. Mediastinum: No gross evidence of adenopathy. Musculoskeletal: Moderate degenerative disc disease changes are present throughout the thoracolumbar spine. Soft Tissues: Unremarkable. Lower neck: No significant findings. Upper Abdomen: No significant findings. IMPRESSION: 1. No evidence of pulmonary embolism. 2. Moderate to severe emphysema. 3. Right lower lobe 10 mm groundglass nodule follow-up in 6-12 months is recommended. 4.Severe atherosclerosis. Follow up recommendations for incidental pulmonary nodules, if there are any, are per [employer] [employer] or [employer].
[2023-05-21] MEDS ORDERED: LABETALOL 5 MG/ML VIAL MDV IVP STA (21:51)
[2023-05-21 22:23] VITALS: RESP 14; TEMP 97.9
[2023-05-21 22:46] VITALS: BP 149/101; PULSE 79
== END 2023-05-21 22:52 | disposition other institution (70) ==
LOC: EC 17:25
DX: E86.0 Dehydration (principal); F10.10 Alcohol abuse, uncomplicated; R55 Syncope and collapse; I10 Essential (primary) hypertension; I48.91 Unspecified atrial fibrillation; J44.9 Chronic obstructive pulmonary disease, unspecified; F12.90 Cannabis use, unspecified, uncomplicated; Z79.02 Long term (current) use of antithrombotics/antiplatelets; Z79.82 Long term (current) use of aspirin; Z79.51 Long term (current) use of inhaled steroids; Z79.899 Other long term (current) drug therapy; Z86.73 Personal history of transient ischemic attack (TIA), and cerebral infarction without residual deficits
CPT/HCPCS: 99285; 96374; 96375; 96361; 36415; 93005; 85379; 83880; 80053; 83605; 83735; 84100; 84484; 85025; 85610; 85730; 81001; 71045; 70450; 71275; J2060; Q9967; J1920